=== PATIENT | female | born 1935 | race Caucasian/White ===

== ENCOUNTER → 2019-06-05 | Outpatient (CLI) | payer OTHER ==
--- NOTE | 2019-06-05 17:58 | RAD ---
EXAM DESCRIPTION: Chest x-ray,2 Views CLINICAL HISTORY: COUGH R05 COMPARISON: None TECHNIQUE: PA/lateral FINDINGS: Calcified nodes in the hilar region bilaterally with scattered calcified granulomas of the lungs. Heart size is normal with normal pulmonary vascularity. No pleural effusion or pneumothorax. Lungs are clear with no consolidating infiltrate. Lateral view shows intact sternum and degenerative spurring in the mid to lower T-spine. IMPRESSION: No acute process. Electronically signed by: Wild Chaparro MD 06/05/2019 5:57 PM [facility]
== END ==
LOC: LAB.O 16:37
PROVIDERS: ATTEND Nurse Practitioner
DX: R05 Cough (principal); R10.2 Pelvic and perineal pain; R34 Anuria and oliguria

== ENCOUNTER → 2019-06-19 | Outpatient (CLI) | payer OTHER ==
--- NOTE | 2019-06-19 13:34 | RAD ---
EXAM DESCRIPTION: Chest,2 Views CLINICAL HISTORY: 83 years Female, ACUTE EXACERBATION OF CHRONIC OBSTRUCTIVE AIRWAYS DISEASE COMPARISON: 06/05/2019 FINDINGS: 2 views/radiographs Heart size and pulmonary vessels are within normal limits. There is no pneumothorax or pleural effusion. The lungs are clear bilaterally. The soft tissues are unremarkable. No acute osseous findings. Prior granulomatous disease. Atherosclerotic plaque in the thoracic aorta. The lungs are hyperexpanded. IMPRESSION: No acute cardiopulmonary abnormality. Electronically signed by: Lei Cotter MD 06/19/2019 1:33 PM [facility]
== END ==
LOC: LAB.O 12:48
PROVIDERS: ATTEND Nurse Practitioner
DX: J44.1 Chronic obstructive pulmonary disease with (acute) exacerbation (principal); E87.1 Hypo-osmolality and hyponatremia

== ENCOUNTER → 2019-07-01 | Outpatient (CLI) | payer OTHER | LOC: LAB.O 09:44 | PROVIDERS: ATTEND Nurse Practitioner | DX: R05 Cough (principal) ==

== ENCOUNTER 2019-07-15 16:26 | Emergency (ER) | payer OTHER ==
[2019-07-15] MEDS ORDERED: MORPHINE SULFATE INJ 10 MG/ML VIAL IV ONE (16:50)
[2019-07-15] MEDS ORDERED: ONDANSETRON INJ 4 MG/2 ML VIAL IV ONE (16:50)
[2019-07-15] MEDS ORDERED: hydrALAZINE HCl 20 MG/ML VIAL IV ONE (16:51)
[2019-07-15] MEDS: SODIUM CHLORIDE 0.9% (FLUSH) 10 ML SYG IV PRN ×2 (17:22→19:51)
--- NOTE | 2019-07-15 17:53 | RAD ---
EXAM DESCRIPTION: Chest,2 Views CLINICAL HISTORY: malignant hypertension COMPARISON: Chest radiograph dated June 19, 2019 TECHNIQUE: Two-view radiograph of the chest FINDINGS: Calcific atherosclerosis and tortuosity of the thoracic aorta. Cardiac silhouette shows normal heart size. Pulmonary vascularity is within normal limits. Scattered calcified granuloma throughout both lungs. Calcification bilateral hilar regions most compatible with granulomatous disease. Subtle linear opacities in the bilateral lower lung zones most compatible with atelectasis. Bilateral apical scarring. Costophrenic angles are sharp. No pneumothorax. Degenerative changes of the thoracic spine and bilateral shoulders. IMPRESSION: 1. Subtle linear opacities bilateral lower lung zones most compatible with atelectasis. Underlying infiltrate cannot be excluded. 2. Chronic findings as above. Electronically signed by: Nicolas Salvador MD 07/15/2019 5:52 PM [facility]
[2019-07-15] MEDS ORDERED: PROCHLORPERAZINE INJ 10 MG/2 ML VIAL IV ONE (19:19)
--- NOTE | 2019-07-15 20:06 | CT ---
EXAM DESCRIPTION: Head CLINICAL HISTORY: dizziness with htn. COMPARISON: None Available TECHNIQUE: Contiguous axial CT images of the head were obtained. Coronal and sagittal reconstructions were created from the axial data. This exam was performed according to our departmental dose-optimization program, which includes automated exposure control, adjustment of the mA and/or kV according to patient size and/or use of iterative reconstruction technique. FINDINGS: There is no evidence of acute mass, mass effect, midline shift or hemorrhage. The ventricles and extra-axial CSF spaces are unremarkable. The brain parenchyma appears normal for the patient's age. No acute abnormalities of the bones is seen. IMPRESSION: No acute intracranial abnormality. Electronically signed by: Darrell Rolle 07/15/2019 8:04 PM [facility]
--- NOTE | 2019-07-15 20:59 | ED.PDOC ---
History of Present Illness - General Chief Complaint: General Stated Complaint: dizziness, high blood pressure Time Seen by Provider: 07/15/19 16:46 Source: patient, RN notes reviewed, Vital Signs reviewed, family - Son, RN/ - Dr. Mcgee Exam Limitations: no limitations - History of Present Illness Initial Comments: Patient is an 83-year-old white female who presented to her PCPs office this afternoon with elevated blood pressure, headache and dizziness. They attempted to bring her blood pressure down there in the clinic, but were unsuccessful and sent her to the emergency department for further evaluation and treatment. On arrival here patient is complaining of a headache, not the worst of her life, associated dizziness and blurry vision with some mild nausea. Patient denied any vertigo. She denies any chest pain or shortness of breath. She denies any nausea, vomiting or diarrhea. This came on acutely this morning. It lasted for approximately 10 hours. Nothing seems to make it better or worse. Timing/Duration: 4-6 hours Severity: severe Improving Factors: nothing Worsening Factors: nothing Associated Symptoms: headaches Allergies/Adverse Reactions: Allergies Amantadine Allergy (Verified 07/15/19 17:07) Cephalosporins Allergy (Verified 07/15/19 17:07) Penicillins Allergy (Verified 07/15/19 17:07) Home Medications: Ambulatory Orders Nitrofurantoin Monohydrate Mac [Macrobid] 100 mg PO BID #14 capsule 07/15/19 Prochlorperazine Tab [Compazine Tab] 10 mg PO Q6H #12 tab 07/15/19 Review of Systems - Review of Systems Constitutional: States: see HPI, weakness EENTM: States: no symptoms reported Respiratory: States: no symptoms reported. Denies: short of breath, wheezing Cardiology: States: no symptoms reported. Denies: chest pain, palpitations Gastrointestinal/Abdominal: Denies: abdominal pain, nausea, vomiting Genitourinary: States: no symptoms reported Musculoskeletal: States: no symptoms reported Skin: States: no symptoms reported Neurological: States: see HPI, headache. Denies: paresthesia, tingling, tremors Endocrine: States: no symptoms reported Hematologic/Lymphatic: States: no symptoms reported All other Systems: Reviewed and Negative Past Medical History (General) - Patient Medical History Hx Stroke: No Hx Dementia: No Hx of COPD: Yes Hx Congestive Heart Failure: No Hx Hypertension: Yes Hx Diabetes: No Hx Renal Disease: No Surgical History: appendectomy, other Family Medical History - Family History Mother Family History: No Known Physical Exam - Physical Exam General Appearance: Alert, Anxious, Well Developed, Well Groomed, Well Hydrated, Well Nourished Eye Exam: bilateral normal Ears, Nose, Throat: hearing grossly normal, normal ENT inspection, normal pharynx Neck: non-tender, full range of motion, supple, normal inspection Respiratory: chest non-tender, lungs clear, normal breath sounds, no respiratory distress, no accessory muscle use Cardiovascular/Chest: normal peripheral pulses, regular rate, rhythm, no edema, no gallop, no JVD, no murmur Peripheral Pulses: radial,right: 2+, radial,left: 2+ Gastrointestinal/Abdominal: normal bowel sounds, non tender, soft, no organomegaly, no pulsatile mass Back Exam: normal inspection, no CVA tenderness, no vertebral tenderness Extremity: normal range of motion, non-tender, normal inspection, no pedal edema 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 07/15/19 21:10 Patient presented with headache, dizziness and significantly elevated blood pressure. Blood pressure was brought down using IV medication. Additionally patient was given pain medication for headache. This only helped minimally but after I gave her IV Compazine the headache resolved. On review of her records, she has a UTI and I will treat this with a prescription for antibiotics. I have discussed the plan of care with the patient and her son and they voiced understanding and agreement. Plan discharge home at this time. Rolando Rodríguez M.D. #[id number] - Results/Orders Results/Orders: EXAM DESCRIPTION: Head CT CLINICAL HISTORY: dizziness with htn. COMPARISON: None Available TECHNIQUE: Contiguous axial CT images of the head were obtained. Coronal and sagittal reconstructions were created from the axial data. This exam was performed according to our departmental dose-optimization program, which includes au tomated exposure control, adjustment of the mA and/or kV according to patient size and/or use of iterative reconstruction technique. FINDINGS: There is no evidence of acute mass, mass effect, midline shift or hemorrhage. The ventricles and extra-axial CSF spaces are unremarkable. The brain parenchyma appears normal for the patient's age. No acute abnormalities of the bones is seen. IMPRESSION: No acute intracranial abnormality. Electronically signed by: Darrell Ariascarly 07/15/2019 8:04 PM [facility] EXAM DESCRIPTION: Chest,2 Views CLINICAL HISTORY: malignant hypertension COMPARISON: Chest radiograph dated June 19, 2019 TECHNIQUE: Two-view radiograph of the chest FINDINGS: Calcific atherosclerosis and tortuosity of the thoracic aorta. Cardiac silhouette shows normal heart size. Pulmonary vascularity is within normal limits. Scattered calcified granuloma throughout both lungs. Calcification bilateral hilar regions most compatible with granulomatous disease. Subtle linear opacities in the bilateral lower lung zones most compatible with atelectasis. Bilateral apical scarring. Costophrenic angles are sharp. No pneumothorax. Degenerative changes of the thoracic spine and bilateral shoulders. IMPRESSION: 1. Subtle linear opacities bilateral lower lung zones most compatible with atelectasis. Underlying infiltrate cannot be excluded. 2. Chronic findings as above. Electronically signed by: Nicolas Salvador MD 07/15/2019 5:52 PM [facility] 07/15/19 16:30 Urine Culture Stat 07/15/19 16:47 IV Care:Saline Lock per Protoc QSHIFT Telemetry ONCE Sodium Chloride 0.9% (Flush) [Saline Flush Syringe] 3 ml IV PRN PRN 07/15/19 17:00 EKG STAT 07/16/19 09:00 Pulse Ox Daily Laboratory Results - last 24 hr 07/15/19 07/15/19 07/15/19 16:30 17:18 17:18 WBC 8.2 RBC 4.30 Hgb 12.9 Hct 39.4 MCV 91.6 MCH 30.0 MCHC 32.8 L RDW 13.4 Plt Count 268 MPV 7.3 L Absolute Neuts (auto) 4.60 Absolute Lymphs (auto) 2.10 Absolute Monos (auto) 0.80 Absolute Eos (auto) 0.60 H Absolute Basos (auto) 0.10 Neutrophils % 56.5 Lymphocytes % 25.2 Monocytes % 10.2 H Eosinophils % 7.2 H Basophils % 0.9 Sodium 134 L Potassium 3.5 L Chloride 100 L Carbon Dioxide 23 Anion Gap 14.5 BUN 10 Creatinine 0.92 BUN/Creatinine Ratio 10.9 Random Glucose 98 Serum Osmolality 267.3 L Calcium 9.7 Magnesium 1.8 Total Bilirubin 0.7 AST 20 ALT 12 Alkaline Phosphatase 118 Creatine Kinase 69 CK-MB (CK-2) 2.0 CK-MB (CK-2) % Not Reportable Troponin I 0.02 B-Natriuretic Peptide 199.0 H Serum Total Protein 6.8 Albumin 3.9 Globulin 2.9 Albumin/Globulin Ratio 1.3 Lipase 29 Urine Color Yellow Urine Appearance Clear Urine pH 6.0 Ur Specific [place] 1.015 Urine Protein Negative Urine Glucose (UA) Negative Urine Ketones Negative Urine Blood Negative Urine Nitrite Negative Urine Bilirubin Negative Urine Urobilinogen 0.2 Ur Leukocyte Esterase Trace H Urine RBC 0-1 Urine WBC 10-20 H Ur Epithelial Cells 1-3 Urine Bacteria 1+ Departure - Departure Clinical Impression: Accelerated hypertension Urinary tract infection Qualifiers: Urinary tract infection type: acute cystitis Hematuria presence: without hematuria Qualified Code(s): N30.00 - Acute cystitis without hematuria Migraine headache Qualifiers: Migraine type: without aura Status migrainosus presence: without status migrainosus Intractability: not intractable Qualified Code(s): G43.009 - Migraine without aura, not intractable, without status migrainosus Disposition: Discharge to Home or Self Care Condition: Good Departure Forms: ED Discharge - Pt. Copy, Patient Portal Self Enrollment Instructions: Migraine Headache (DC), Urinary Tract Infection, Adult (DC), Malignant Hypertension (DC) Referrals: Hilary Mcgee MD [Primary Care Provider] - 1-5 Days Prescriptions: Nitrofurantoin Monohydrate Mac [Macrobid] 100 mg PO BID #14 capsule Prochlorperazine Tab [Compazine Tab] 10 mg PO Q6H #12 tab Home Medications: Ambulatory Orders Nitrofurantoin Monohydrate Mac [Macrobid] 100 mg PO BID #14 capsule 07/15/19 Prochlorperazine Tab [Compazine Tab] 10 mg PO Q6H #12 tab 07/15/19
[2019-07-15 23:26] VITALS: BP 100/52; TEMP 98.1; O2SAT 97
== END 2019-07-15 21:48 | disposition home or self-care (01) ==
LOC: ER 16:26
DX: I10 Essential (primary) hypertension (principal); N30.00 Acute cystitis without hematuria; G43.009 Migraine without aura, not intractable, without status migrainosus; J44.9 Chronic obstructive pulmonary disease, unspecified; Z88.8 Allergy status to other drugs, medicaments and biological substances; Z88.0 Allergy status to penicillin; Z79.899 Other long term (current) drug therapy
CPT/HCPCS: 36415; 70450; 71046; 80053; 81001; 82550; 82553; 83690; 83735; 83880; 84484; 85025; 87086; 93005; J0360; J0780; J2270; J2405

== ENCOUNTER → 2019-07-16 | Outpatient (CLI) | payer OTHER ==
--- NOTE | 2019-07-17 13:48 | US ---
EXAM DESCRIPTION: Renal: Ultrasound. CLINICAL HISTORY: 83 years Female Renal check up COMPARISON: None TECHNIQUE: Transcutaneous scanning: Two-dimensional and Doppler modes. FINDINGS: Right kidney measures 8.4 x 4.0 x 4.0 cm; mid-renal cortical thickness 9 mm. . Increased cortical echogenicity but less than the liver No hydronephrosis No echogenic stones. Smooth contour of the kidney with no perinephric fluid. Normal vascularity. Proximal ureter not visualized.. Left kidney measures 8.9 x 4.7 x 4.6 cm; mid-renal cortical thickness 9 mm.. Increased echogenicity but less than the liver No hydronephrosis. No echogenic stones. Smooth contour of the kidney with no perinephric fluid. Normal vascularity.. Proximal ureter not visualized.. Urinary bladder not visualized. Abdominal aorta: not measured. IMPRESSION: Bilateral kidneys with age-related changes including increased cortical echogenicity and decreased cortical thickness. No echogenic stones or hydronephrosis. No perinephric fluid. Normal vascularity. Electronically signed by: Darrell Loomis MD 07/17/2019 1:46 PM [facility]
== END ==
LOC: US 12:11
PROVIDERS: ATTEND Internal Medicine Nephrology
DX: N18.4 Chronic kidney disease, stage 4 (severe) (principal)

== ENCOUNTER 2019-07-23 17:36 | Inpatient (IN) | payer OTHER ==
[2019-07-23] MEDS ORDERED: SODIUM CHLORIDE 0.9% (FLUSH) 10 ML SYG IV PRN ×2 (17:48→22:22)
--- NOTE | 2019-07-23 17:53 | ED.PDOC ---
History of Present Illness - General Chief Complaint: Respiratory Problem Stated Complaint: wheezing Time Seen by Provider: 07/23/19 17:42 - History of Present Illness Initial Comments: 83-year-old female presents to the emergency room with family for progressive cough, shortness of breath over two months, now w weakness over 2-3 days. + chills. States she has had 5 chest x-rays, seen multiple physicians, but not been placed on antibiotics. She is also concerned because her blood pressure rises every evening, but seems to not be clear on her medication regimen. Medication pillbox at the bedside has certain days that are full, but others are completely empty. She denies fever, productive cough, no recent hospitalizations. States she uses inhalers, but not sure what kind. Allergies/Adverse Reactions: Allergies Amantadine Allergy (Verified 07/15/19 17:07) Cephalosporins Allergy (Verified 07/15/19 17:07) Penicillins Allergy (Verified 07/15/19 17:07) Home Medications: Ambulatory Orders Nitrofurantoin Monohydrate Mac [Macrobid] 100 mg PO BID #14 capsule 07/15/19 Prochlorperazine Tab [Compazine Tab] 10 mg PO Q6H #12 tab 07/15/19 Review of Systems - Review of Systems Review of Systems: 07/23/19 17:51 General: has generalized weakness, chills, no arthralgia/myalgia HEENT: Denies sore throat, rhinorrhea Cardiovascular: has chest pain w cough, no palpitations Respiratory: has SOB, cough Gastrointestinal: Denies abdominal pain, vomiting, diarrhea : Denies dysuria, frequency Musculoskeletal: Denies extremity pain, extremity swelling Integument: Denies rash, itching Neuro: Denies focal weakness or numbness Psych: Denies depression, hallucinations Past Medical History (General) - Patient Medical History Hx Stroke: No Hx Dementia: No Hx of COPD: Yes Hx Congestive Heart Failure: No Hx Hypertension: Yes Hx Diabetes: No Hx Renal Disease: No Family Medical History - Family History Mother Family History: No Known Physical Exam - Physical Exam Comments: General Appearance: Patient is awake and alert. elderly, frail, grumpy. Skin: Warm and dry. No diaphoresis. No rash or other lesions. Head: Normocephalic/atraumatic. Eyes: PERRL, lids, conjunctiva and sclera unremarkable. EOMI intact. ENT: No nasal discharge. Oropharynx. Without erythema, exudate, lesions. Moist mucous membranes. Neck: Supple. No LAD. No tenderness. No JVD noted. Respiratory: Normal rate and effort. Coarse BS, is coughing. Cardiovascular: Regular rate. Heart sounds normal. No murmur. GI: Abdomen soft, non-distended and non-tender. No rebound/guarding. Bowel sounds normal. Back: No tenderness Musculoskeletal: Extremities- Normal range of motion. No effusion, cyanosis, edema. Neurological: Alert. No facial palsy. Speech clear. Gag intact. No motor deficit, str symmetric. No sensory deficit. Progress - Progress Progress: 07/23/19 19:49 worsening productive cough, has leukocytosis, left shift, Na 130, CXR w/ worse infiltrates, concerning for pna, moderate risk. cultures sent, added lactic acid, abx, nebs, single dose steroid. RT at bedside, will plan admit. - Results/Orders Results/Orders: Vital Signs - 24 hr 07/23/19 07/23/19 07/23/19 17:45 18:37 18:40 Temperature 100.0 F H Pulse Rate [ 75 75 77 left brachial] Respiratory 24 24 22 Rate Blood Pressure 176/64 137/71 [left brachial] O2 Sat by Pulse 91 L 90 L Oximetry 07/23/19 19:00 Temperature Pulse Rate [ 77 left brachial] Respiratory 24 Rate Blood Pressure 163/67 [left brachial] O2 Sat by Pulse 94 L Oximetry 07/23/19 17:48 Sodium Chloride 0.9% (Flush) [Saline Flush Syringe] 10 ml IV PRN PRN 07/23/19 18:00 EKG STAT 07/24/19 09:00 Pulse Ox Daily Laboratory Results WBC 13.9 K/mm3 (4.8-10.8) H 07/23/19 18:10 RBC 3.86 M/mm3 (4.20-5.40) L 07/23/19 18:10 Hgb 11.6 gm/dL (12.0-16.0) L 07/23/19 18:10 Hct 35.0 % (36.0-47.0) L 07/23/19 18:10 MCV 90.7 fl (81.0-99.0) 07/23/19 18:10 MCH 30.0 pg (27.0-31.0) 07/23/19 18:10 MCHC 33.1 g/dL (33.0-37.0) 07/23/19 18:10 RDW 13.2 % (11.5-14.5) 07/23/19 18:10 Plt Count 256 K/mm3 (130-400) 07/23/19 18:10 MPV 7.8 fl (7.40-10.4) 07/23/19 18:10 Absolute Neuts (auto) 11.50 K/uL (1.8-6.8) H 07/23/19 18:10 Absolute Lymphs (auto) 0.80 K/uL (1.0-3.4) L 07/23/19 18:10 Absolute Monos (auto) 0.90 K/uL (0.2-0.8) H 07/23/19 18:10 Absolute Eos (auto) 0.70 K/uL (0.0-0.4) H 07/23/19 18:10 Absolute Basos (auto) 0.00 K/uL (0.0-0.1) 07/23/19 18:10 Neutrophils % 82.1 % (42.0-78.0) H 07/23/19 18:10 Lymphocytes % 5.8 % (20.0-50.0) L 07/23/19 18:10 Monocytes % 6.6 % (2.0-9.0) 07/23/19 18:10 Eosinophils % 5.3 % (1.0-5.0) H 07/23/19 18:10 Basophils % 0.2 % (0.0-2.0) 07/23/19 18:10 Sodium 130 mmol/L (135-145) L 07/23/19 18:10 Potassium 4.1 mmol/L (3.6-5.0) 07/23/19 18:10 Chloride 96 mmol/L (101-111) L 07/23/19 18:10 Carbon Dioxide 23 mmol/L (21-31) 07/23/19 18:10 Anion Gap 15.1 (12-18) 07/23/19 18:10 BUN 15 mg/dL (7-18) 07/23/19 18:10 Creatinine 1.11 mg/dL (0.6-1.3) 07/23/19 18:10 BUN/Creatinine Ratio 13.5 (10-20) 07/23/19 18:10 Random Glucose 106 mg/dL (70-105) H 07/23/19 18:10 Serum Osmolality 262.0 mOsm/L (275-295) L 07/23/19 18:10 Calcium 9.3 mg/dL (8.4-10.2) 07/23/19 18:10 Total Bilirubin 0.7 mg/dL (0.2-1.0) 07/23/19 18:10 AST 34 IU/L (10-42) 07/23/19 18:10 ALT 25 IU/L (10-60) 07/23/19 18:10 Alkaline Phosphatase 124 IU/L (42-121) H 07/23/19 18:10 Troponin I 0.02 ng/mL (0.01-0.05) 07/23/19 18:10 Serum Total Protein 6.6 gm/dL (6.4-8.2) 07/23/19 18:10 Albumin 3.6 g/dl (3.2-5.5) 07/23/19 18:10 Globulin 3.0 gm/dL (2.3-3.5) 07/23/19 18:10 Albumin/Globulin Ratio 1.2 (1.1-1.9) 07/23/19 18:10 - EKG/XRAY/CT XRAY: chest Xray Comments: bilateral infiltrates, concerning for pna, worsened since 07/15 - Consult/PCP Time Called: 19:47 Consult/PCP: d/w Guerita Bass, agrees to admit Departure - Departure Clinical Impression: Pneumonia Disposition: Admit Patient Condition: Fair Referrals: Hilary Mcgee MD [Primary Care Provider] - 1-2 Weeks Home Medications: Ambulatory Orders Nitrofurantoin Monohydrate Mac [Macrobid] 100 mg PO BID #14 capsule 07/15/19 Prochlorperazine Tab [Compazine Tab] 10 mg PO Q6H #12 tab 07/15/19 Comments: Jesus Berman MD Emergency Medicine #[id number] Decision To Admit - Decistion To Admit Decision to Admit Reason: Admit from ER Decision to Admit Date: 07/23/19 Decision to Admit Time: 19:38
--- NOTE | 2019-07-23 18:20 | RAD ---
EXAM:Chest,2 Views CLINICAL INDICATION: Cough COMPARISON: 07/15/2019 FINDINGS:Two views of the chest were obtained. The heart size is normal. The pulmonary vascularity is unremarkable. Mild infiltrates are seen in the right apex as well as in the left lower lobe suspicious for pneumonia. A few scattered calcified granulomas are noted as well as chronic mild biapical scarring. Trace bilateral pleural effusions are noted. The lungs are otherwise clear. IMPRESSION: Bilateral pulmonary infiltrates suspicious for pneumonia which appear worse than 07/15/2019. Electronically signed by: Khurram Roa MD 07/23/2019 6:18 PM [facility]
[2019-07-23] MEDS ORDERED: SODIUM CHLORIDE 0.9% 500ML 500 ML IVS ONE (18:35)
[2019-07-23] MEDS ORDERED: DEXAMETHASONE INJ 4 MG/ML VIAL IV ONE (18:36)
[2019-07-23] MEDS ORDERED: levoFLOXacin 500MG IV 500 MG in PREMIX BAG 1 BAG IVPB ONE (19:26)
[2019-07-23] MEDS ORDERED: levoFLOXacin 500MG IV 100 ML IVPB ONE (19:34)
[2019-07-23] MEDS ORDERED: IPRATROPIUM/ALBUTEROL 3 ML VIAL NEB ONE ×2 (19:36→19:37)
--- NOTE | 2019-07-23 20:41 | HP ---
SUPERVISING PHYSICIAN: Ted Merida MD CHIEF COMPLAINT: Wheezing and upper respiratory symptoms times 2 months. HISTORY OF PRESENT ILLNESS: This is an 83 year-old female patient who came to the Emergency Room with her family. She has had a progressive cough and shortness of breath that has been ongoing for over 2 months. In the last couple of days, she has had weakness that has accompanied chills and fever. She has been seen by several providers but has had no antibiotics that she remembers. She does have a history of hypertension and it is reported from the Emergency Room that she had a mixup on her medications. In the Emergency Room, her initial vital signs were temperature of 100, heart rate 75, blood pressure 176/64, respiratory rate 24, 02 saturation of 91%. She moved here from [place] in March and in [place] she was oxygen dependent. She does not have oxygen at this time. Her lab was done and WBC was 13,900 with a hemoglobin of 11.6 and hematocrit of 35. She did have a left shift on her differential. Sodium was 130, potassium 4.1, chloride 96, glucose 106, serum osmolality 262, lactic acid of 1. Alkaline phosphatase was slightly elevated at 124, troponin 0.02, C- reactive protein was 9.9. Urinalysis was basically unremarkable except she did have a small amount of leukocyte esterase present. Chest x-ray showed bilateral pulmonary infiltrate suspicious for pneumonia that is worse than previous x-ray. She was given some Levaquin as well as Decadron, multiple breathing treatments and I was called for admission to the hospital. PAST MEDICAL HISTORY: 1. Chronic obstructive pulmonary disease. 2. Chronic low back pain. 3. Hypertension. 4. Urinary retention. PAST SURGICAL HISTORY: 1. Hemorrhoidectomy. 2. Appendectomy. 3. Repair of rectal fistula. 4. Thumb surgery. 5. Eye surgery. CURRENT MEDICATIONS: Per the EMR and awaiting verification. ALLERGIES: Amantadine, cephalosporin and penicillins. FAMILY HISTORY: SOCIAL HISTORY: She lives in [place]. She recently moved from [place] on April 08. She denies smoking, ETOH or illicit drug use. REVIEW OF SYSTEMS: GENERAL: Positive for fatigue, fever, negative for weight changes. HEENT: Negative for sinus symptoms, ear pain, vision changes, sore throat. RESPIRATORY: Positive for coughing, wheezing, shortness of breath. CARDIAC: No chest pain, palpitations or tachycardia. GI: Negative for nausea or vomiting, diarrhea. GENITOURINARY: Negative for dysuria, polyuria, hematuria. MUSCULOSKELETAL: Positive for back pain that is chronic. Negative for arthrosis, myalgias. INTEGUMENT: Negative for lesions or rashes. NEUROLOGICAL: Negative for weakness, headaches or seizures. PHYSICAL EXAMINATION: VITAL SIGNS: Temperature 98.3, heart rate 78, blood pressure 161/69, respiratory rate 20, oxygen saturation 96% on 2 liters nasal cannula. GENERAL: This is an 83 year-old female patient lying in her hospital bed. She is in mild respiratory distress. HEENT: Normocephalic and atraumatic. Pupils are equal and reactive. Oropharynx is clear. NECK: Supple without mass. CHEST: Diminished breath sounds throughout. She has some expiratory wheezes throughout all lung dwyer, especially in the apices. She is tachypneic with any exertion. She speaks in 2 to 3-word phrases due to her shortness of breath. There is equal rise and fall of the chest with inspiration and expiration. CARDIOVASCULAR: Regular rate, irregular rhythm. ABDOMEN: Soft, nondistended, non-tender. Bowel sounds are positive. EXTREMITIES: No cyanosis, clubbing, or edema. NEUROLOGIC: She is alert and oriented x 3. Cranial nerves II through XII are grossly intact as tested. LABORATORY: Labs and films are as per the history of present illness. ASSESSMENT: 1. Sepsis related to bilateral pneumonia, most likely community-acquired with admitting respiratory rate of 24, oxygen saturation 90%. WBC of 14,000, CRP of 9.9. 2. Chronic obstructive pulmonary disease with acute exacerbation. 3. Anemia, normochromic, normocytic presentation. 4. Hyponatremia. 5. History of hypertension, on medications. 6. Chronic back pain. PLAN: The patient has been admitted to the hospital. I have initiated the pneumonia guidelines. I will continue her fluids overnight. She will continue on Levaquin and I will order several more doses of Decadron as she has had some allergic reactions to steroids in the past but tolerated that without problems in the Emergency Room. Will check lab in the morning. Will monitor her sodium closely, if we need to we will put her on fluid-restriction. Will have aggressive pulmonary hygiene including nebulizer treatments, both p.r.n. and scheduled. Will need to do extensive chronic obstructive pulmonary disease education, giving her Lovenox for DVT prophylaxis and Protonix for ulcer prophylaxis. Restart her home medications as soon as they are verified. Will continue to monitor closely and follow as needed. #[id number] MIKAEL
[2019-07-23] MEDS: IV SET AND CAP CHANGE INJ INJ SCH (22:30)
[2019-07-23] MEDS ORDERED: levoFLOXacin 500MG IV 500 MG in PREMIX BAG 1 BAG IVPB SCH (22:30)
[2019-07-23] MEDS ORDERED: LABETALOL HCL 100 MG PO SCH (22:45)
[2019-07-23] MEDS: traMADol HCL 50 MG TAB PO PRN (22:57)
[2019-07-24] MEDS ORDERED: IPRATROPIUM/ALBUTEROL 3 ML VIAL NEB ONE (01:00)
--- NOTE | 2019-07-24 05:43 | RAD ---
EXAM: XR Chest, 2 Views CLINICAL HISTORY: The patient is 83 years old and is Female; Pneumonia TECHNIQUE: Frontal and lateral views of the chest. COMPARISON: Chest radiograph from 07/23/2019 FINDINGS: LUNGS: Minimal increased density again noted at the level of the right upper lung and within the bases. This may represent areas of atelectasis. Pneumonia not completely excluded at the right upper lung. PLEURAL SPACE: Small right pleural effusion. No pneumothorax. HEART: Stable mild enlargement of the cardiac silhouette. MEDIASTINUM: Unremarkable. BONES/JOINTS: Degenerative changes of the bilateral shoulders. No obvious acute fracture. IMPRESSION: 1. Mild opacities again noted at the level of the right upper lung and within the bases. This may represent areas of atelectasis. Pneumonia not completely excluded. 2. Small right pleural effusion. Electronically signed by: Lita Alcantara MD 07/24/2019 5:41 AM [facility]
[2019-07-24] MEDS ORDERED: levoFLOXacin 500MG IV 100 ML IVPB ONE (07:17)
[2019-07-24] MEDS ORDERED: SODIUM CHLORIDE 0.9% 1000ML 1,000 ML IVS ONE (07:17)
[2019-07-24] MEDS: levoFLOXacin 500MG IV 500 MG in PREMIX BAG 1 BAG IVPB SCH (09:30)
[2019-07-24] MEDS: IPRATROPIUM/ALBUTEROL 3 ML VIAL INH SCH ×4 (09:30→19:10)
[2019-07-24] MEDS: INDAPAMIDE 2.5 MG PO SCH (09:55)
[2019-07-24] MEDS: LISINOPRIL 10 MG TAB PO SCH (09:56)
[2019-07-24] MEDS: cloNIDine HCL 0.1 MG TAB PO SCH (09:56)
[2019-07-24] MEDS: LABETALOL 200 MG TAB PO SCH ×2 (09:57→20:50)
[2019-07-24] MEDS: SODIUM CHLORIDE 0.9% (FLUSH) 10 ML SYG IV SCH ×2 (09:58→20:51)
[2019-07-24] MEDS: (Mirabegron [Myrbetriq] 25 MG) PO SCH (10:17)
[2019-07-24] MEDS: traMADol HCL 50 MG TAB PO PRN (12:58)
[2019-07-24] MEDS: DEXAMETHASONE INJ 4 MG/ML VIAL IV SCH (17:30)
[2019-07-24] MEDS: ENOXAPARIN SODIUM 40 MG/0.4 ML SYG SUBCU SCH (20:50)
[2019-07-24] MEDS: guaiFENesin ER TAB 600 MG TAB PO SCH (20:50)
[2019-07-24] MEDS: SIMVASTATIN 20 MG TAB PO SCH (20:50)
[2019-07-24] MEDS ORDERED: BISACODYL TAB 5 MG TAB PO ONE (21:43)
[2019-07-24] MEDS: BISACODYL TAB 5 MG TAB PO SCH (21:47)
[2019-07-24] MEDS ORDERED: SENNOSIDES 50 MG PO SCH (22:31)
[2019-07-25] MEDS: ARFORMOTEROL TARTRATE 15 MCG/2 ML NEB NEB SCH ×3 (02:07→20:11)
[2019-07-25] MEDS ORDERED: IPRATROPIUM/ALBUTEROL 3 ML VIAL NEB ONE (03:40)
[2019-07-25] MEDS: diazePAM 5 MG TAB PO PRN ×3 (03:46→20:52)
[2019-07-25] MEDS: PROMETHAZINE W/CODEINE SYR 5 ML UD PO PRN ×2 (05:34→09:02)
--- NOTE | 2019-07-25 07:09 | RAD ---
EXAM DESCRIPTION: Chest,2 Views CLINICAL HISTORY: pna COMPARISON: July 24, 2019, June 05, 2019 FINDINGS: The cardiomediastinal silhouette is unremarkable. Coarse interstitial prominence in both lung bases with additional interstitial opacity in the right lung apex, all not significant change from July 24, 2019. Question tiny right-sided pleural effusion, also stable. No new airspace consolidation. There is no pneumothorax or acute fracture. IMPRESSION: No new abnormality or significant change from yesterday's exam. Electronically signed by: Artemio Butler MD 07/25/2019 7:08 AM [facility]
[2019-07-25] MEDS: IPRATROPIUM/ALBUTEROL 3 ML VIAL INH SCH ×4 (08:10→22:26)
--- NOTE | 2019-07-25 08:19 | PN ---
SUPERVISING PHYSICIAN: Ted Merida MD DATE: 07/24/19 SUBJECTIVE: The patient is sitting up in her bed. Her son is at the bedside. She said she feels much better today although she is still having some shortness of breath and wheezing. We discussed that she had oxygen when she lived in [place] and she does not have oxygen at home now. I told her we can do an ambulation study. Otherwise, no complaints of chest pain, nausea, vomiting, diarrhea or constipation. OBJECTIVE: VITAL SIGNS: Temperature 97.8. Heart rate 75. Blood pressure 133/74. Respiratory rate 22. O2 saturation 96% on 2 liters nasal cannula. RESPIRATORY: Diminished at the bases, just a few expiratory wheezes, a few scattered crackles throughout. CARDIAC: Regular rate and rhythm. GASTROINTESTINAL: Abdomen is soft, nondistended, nontender. Bowel sounds are positive. EXTREMITIES: No cyanosis, clubbing or edema. NEUROLOGIC: Awake, alert and oriented times three. LABORATORY: White count 8, hemoglobin 10.9, hematocrit 32.3. She does have a left shift on her differential. Sodium 130, potassium 4.3, chloride 98, carbon dioxide 21, glucose 130, serum osmolality 262.7. Liver enzymes within normal limits. Blood cultures show no growth after 24 hours. Sputum and urine cultures are both pending. Her chest x-ray shows 1) Mild opacity again noted in the level of the right upper lung and within the bases. This may represent areas of atelectasis. Pneumonia cannot be excluded. 2) Small right pleural effusion. All other labs and films have been reviewed via the EMR. ASSESSMENT: 1. Sepsis related to bilateral pneumonia, most likely community-acquired with admitting respiratory rate of 24, oxygen saturation 90%. WBC of 14,000, CRP of 9.9. 2. Chronic obstructive pulmonary disease with acute exacerbation. 3. Anemia, normochromic/normocytic presentation. 4. Hyponatremia. 5. History of hypertension, on medications. 6. Chronic back pain. PLAN: We will continue present supportive care. I have continued her Decadron for 2 more days and increased her tramadol as she is not having relief from some of her back pain. I have added guaifenesin twice daily. We will have physical therapy work with her tomorrow. I have also ordered an ambulation study to see if she can qualify for oxygen as well as Social Service consult. I have included lab and chest x-ray for tomorrow. We will continue to monitor the patient closely and follow as needed. #[id number] MTDD
[2019-07-25] MEDS ORDERED: levoFLOXacin 500MG IV 100 ML IVPB ONE (08:41)
[2019-07-25] MEDS: levoFLOXacin 500MG IV 500 MG in PREMIX BAG 1 BAG IVPB SCH (08:58)
[2019-07-25] MEDS: (Mirabegron [Myrbetriq] 25 MG) PO SCH (08:59)
[2019-07-25] MEDS: INDAPAMIDE 2.5 MG PO SCH (08:59)
[2019-07-25] MEDS: guaiFENesin ER TAB 600 MG TAB PO SCH ×2 (09:00→20:53)
[2019-07-25] MEDS: LABETALOL 200 MG TAB PO SCH ×2 (09:00→20:53)
[2019-07-25] MEDS: LISINOPRIL 10 MG TAB PO SCH (09:01)
[2019-07-25] MEDS: cloNIDine HCL 0.1 MG TAB PO SCH (09:01)
[2019-07-25] MEDS: DEXAMETHASONE INJ 4 MG/ML VIAL IV SCH (09:01)
[2019-07-25] MEDS ORDERED: MAGNESIUM SULFATE PREMIX 2GM 2 GM in PREMIX BAG 1 BAG IVPB ONE (09:48)
[2019-07-25] MEDS ORDERED: MAGNESIUM SULFATE PREMIX 2GM 50 ML IVPB ONE (11:06)
[2019-07-25] MEDS: SODIUM CHLORIDE 0.9% (FLUSH) 10 ML SYG IV SCH ×2 (11:26→21:00)
[2019-07-25] MEDS: traMADol HCL 50 MG TAB PO PRN ×2 (12:58→18:20)
[2019-07-25] MEDS: tiZANidine 4 MG TAB PO PRN (12:59)
[2019-07-25] MEDS: BISACODYL TAB 5 MG TAB PO SCH (20:53)
[2019-07-25] MEDS: SIMVASTATIN 20 MG TAB PO SCH (20:53)
[2019-07-25] MEDS: ENOXAPARIN SODIUM 40 MG/0.4 ML SYG SUBCU SCH (20:54)
--- NOTE | 2019-07-25 21:41 | PN ---
SUPERVISING PHYSICIAN: Ted Merida MD DATE: 07/25/19 SUBJECTIVE: The patient is sitting up in her hospital bed. Her son is at the bedside. We discussed her medications and discharge planning. She wants to have [facility] on discharge. She also would like to have a sleep study because she had oxygen in [place] and she feels like she needs oxygen at night. Her biggest concern at this time is she has not had a bowel movement and she has quite a problem with constipation. She would like something for that. Otherwise, she has no complaints of shortness of breath or chest pain. OBJECTIVE: VITAL SIGNS: Temperature 98.2. Heart rate 69. Blood pressure 135/74. Respiratory rate 18. O2 saturation 96% on 2 liters nasal cannula. RESPIRATORY: Diminished at the bases, but no wheezing or crackles noted. CARDIAC: Regular rate and rhythm. GASTROINTESTINAL: Abdomen is soft, nondistended, nontender. Bowel sounds are positive. EXTREMITIES: No cyanosis, clubbing or edema. NEUROLOGIC: Awake, alert and oriented times three. LABORATORY: WBCs have normalized to 9.2 with hemoglobin 10.7, hematocrit 31.8. She has a left shift on her differential. Sodium is still low, but has improved to 132. Other electrolytes are within normal limits with the exception of magnesium is slightly low at 1.7. Preliminary blood cultures show no growth after 48 hours. Urine culture is pending. Chest x-ray shows no new abnormalities or significant change from yesterday's exam. Her echocardiogram report shows 1) Normal left ventricular size and systolic dysfunction with an estimated ejection fraction of 60 to 65% and no obvious regional wall motion abnormalities. 2) Normal right ventricular size and function. 3) Trace of mitral and tricuspid valve regurgitation. 4) Normal pericardium. All other labs and films have been reviewed via the EMR. ASSESSMENT: 1. Sepsis related to bilateral pneumonia, most likely community-acquired with admitting respiratory rate of 24, oxygen saturation 90%. WBC of 14,000, CRP of 9.9. 2. Chronic obstructive pulmonary disease with acute exacerbation. 3. Anemia, normochromic/normocytic presentation. 4. Hyponatremia. 5. History of hypertension, on medications. 6. Chronic back pain. 7. Chronic constipation. PLAN: We will continue present supportive care. She received some magnesium IV replacement. I will order labs for in the morning and hold chest x-ray for now. She has had ambulation study today and if she does not require oxygen on her ambulation study, we will need to order a sleep study and have it scheduled after discharge. I will give her magnesium citrate for her constipation. We will continue to monitor the patient closely and follow as needed. #[id number] [facility]
[2019-07-26] MEDS ORDERED: MAGNESIUM CITRATE 300 ML BTTL PO ONE (06:00)
[2019-07-26] MEDS ORDERED: levoFLOXacin 500MG IV 100 ML IVPB ONE (08:59)
[2019-07-26] MEDS: IPRATROPIUM/ALBUTEROL 3 ML VIAL INH SCH ×4 (09:04→20:30)
[2019-07-26] MEDS: ARFORMOTEROL TARTRATE 15 MCG/2 ML NEB NEB SCH ×2 (09:04→20:30)
[2019-07-26] MEDS: levoFLOXacin 500MG IV 500 MG in PREMIX BAG 1 BAG IVPB SCH (09:15)
[2019-07-26] MEDS: (Mirabegron [Myrbetriq] 25 MG) PO SCH (09:15)
[2019-07-26] MEDS: INDAPAMIDE 2.5 MG PO SCH (09:16)
[2019-07-26] MEDS: tiZANidine 4 MG TAB PO PRN (09:16)
[2019-07-26] MEDS: guaiFENesin ER TAB 600 MG TAB PO SCH ×2 (09:17→21:04)
[2019-07-26] MEDS: LABETALOL 200 MG TAB PO SCH ×2 (09:17→21:05)
[2019-07-26] MEDS: traMADol HCL 50 MG TAB PO PRN ×3 (09:18→21:34)
[2019-07-26] MEDS: cloNIDine HCL 0.1 MG TAB PO SCH (09:18)
[2019-07-26] MEDS: DEXAMETHASONE INJ 4 MG/ML VIAL IV SCH (09:20)
[2019-07-26] MEDS: SODIUM CHLORIDE 0.9% (FLUSH) 10 ML SYG IV SCH ×2 (09:20→21:06)
[2019-07-26] MEDS: LISINOPRIL 10 MG TAB PO SCH (09:27)
[2019-07-26] MEDS ORDERED: BIFIDOBACTERIUM INFANTIS 4 MG CAP PO SCH (13:30)
--- NOTE | 2019-07-26 17:19 | PN ---
SUPERVISING PHYSICIAN: Ted Merida MD DATE: 07/26/19 SUBJECTIVE: The patient is still having a significant amount of coughing and some shortness of breath associated with the cough. She has remained afebrile and has not had any further complaints of nausea or vomiting or chest pain. OBJECTIVE: VITAL SIGNS: Temperature 98.2. Heart rate 67. Blood pressure 166/72. Respiratory rate 20. O2 saturation 94% on room air at rest. I&O: Positive balance with a weight of 68.9 kg which is stable.. GENERAL: Patient is resting comfortably, appears to be in no acute distress. She is alert. RESPIRATORY: Lung sounds diminished toward the bases, with no notable wheezing or rhonchi today. . CARDIAC: Regular rate and rhythm. GASTROINTESTINAL: Abdomen is soft, nondistended, non-tender. Bowel sounds are positive. EXTREMITIES: No edema. NEUROLOGIC: Alert and oriented times three. LABORATORY: White count slightly elevated from yesterday at 11,000. Hemoglobin 11.2, hematocrit 35.3, platelet count 286,000, differential continues to show a left shift. Chemistries now show normal electrolytes with BUN of 60, creatinine 0.4. Liver functions within normal limits. Magnesium 1.9. MICROBIOLOGY: Sputum culture was cancelled. Urine culture final result showed no growth at 36 hours and blood cultures remained negative at 48 hours. RADIOLOGY: No additional studies today. ASSESSMENT: 1. Sepsis secondary to bilateral pneumonia, community-acquired.. 2. Chronic obstructive pulmonary disease with exacerbation secondary to #1. 3. Anemia, normochromic/normocytic, probably of chronic illness. . 4. Hyponatremia, now resolved. 5. History of hypertension, on medications and stable. 6. Chronic back pain. 7. Chronic constipation. PLAN: The patient seems to be doing a little better today. We will continue with aggressive treatment in regard to pulmonary hygiene and anticipate discharge tomorrow. Will await ambulation studies to insure that she is not going to require oxygen on discharge. She will need a sleep study scheduled after documentation. We will work on the constipation as needed. Until we can transition her to outpatient management which hopefully will be tomorrow, we will continue to monitor and treat as needed #[id number] MTDD
[2019-07-26] MEDS: BISACODYL TAB 5 MG TAB PO SCH (21:00)
[2019-07-26] MEDS: SENNOSIDES 25 MG PO SCH (21:00)
[2019-07-26] MEDS ORDERED: BISACODYL TAB 5 MG TAB PO SCH (21:00)
[2019-07-26] MEDS: BIFIDOBACTERIUM INFANTIS 4 MG CAP PO SCH (21:04)
[2019-07-26] MEDS: SIMVASTATIN 20 MG TAB PO SCH (21:05)
[2019-07-26] MEDS: ENOXAPARIN SODIUM 40 MG/0.4 ML SYG SUBCU SCH (21:06)
[2019-07-26] MEDS: IV SET AND CAP CHANGE INJ INJ SCH (23:11)
[2019-07-27] MEDS ORDERED: levoFLOXacin 500MG IV 100 ML IVPB ONE (07:54)
[2019-07-27] MEDS: levoFLOXacin 500MG IV 500 MG in PREMIX BAG 1 BAG IVPB SCH (08:20)
[2019-07-27] MEDS: LABETALOL 200 MG TAB PO SCH ×2 (08:21→21:04)
[2019-07-27] MEDS: (Mirabegron [Myrbetriq] 25 MG) PO SCH (08:21)
[2019-07-27] MEDS: cloNIDine HCL 0.1 MG TAB PO SCH (08:21)
[2019-07-27] MEDS: guaiFENesin ER TAB 600 MG TAB PO SCH ×2 (08:21→21:09)
[2019-07-27] MEDS: LISINOPRIL 10 MG TAB PO SCH (08:21)
[2019-07-27] MEDS: SODIUM CHLORIDE 0.9% (FLUSH) 10 ML SYG IV SCH ×2 (08:22→21:04)
[2019-07-27] MEDS: INDAPAMIDE 2.5 MG PO SCH (08:22)
[2019-07-27] MEDS: ARFORMOTEROL TARTRATE 15 MCG/2 ML NEB NEB SCH ×2 (09:18→20:30)
[2019-07-27] MEDS: IPRATROPIUM/ALBUTEROL 3 ML VIAL INH SCH ×4 (09:18→20:35)
[2019-07-27] MEDS: traMADol HCL 50 MG TAB PO PRN ×2 (10:52→21:01)
[2019-07-27] MEDS: PROMETHAZINE W/CODEINE SYR 5 ML UD PO PRN (13:52)
[2019-07-27] MEDS: SIMVASTATIN 20 MG TAB PO SCH (21:00)
[2019-07-27] MEDS: BIFIDOBACTERIUM INFANTIS 4 MG CAP PO SCH (21:02)
[2019-07-27] MEDS: BISACODYL TAB 5 MG TAB PO SCH (21:03)
[2019-07-27] MEDS: ENOXAPARIN SODIUM 40 MG/0.4 ML SYG SUBCU SCH (21:03)
[2019-07-27] MEDS: SENNOSIDES 25 MG PO SCH (21:06)
[2019-07-27] MEDS: diazePAM 5 MG TAB PO PRN (23:52)
[2019-07-28] MEDS ORDERED: ALBUTEROL SULFATE 2.5 MG/3 ML VIAL NEB ONE (03:31)
[2019-07-28] MEDS ORDERED: levoFLOXacin 500MG IV 100 ML IVPB ONE (07:11)
[2019-07-28] MEDS: traMADol HCL 50 MG TAB PO PRN ×2 (08:16→19:23)
[2019-07-28] MEDS: LISINOPRIL 10 MG TAB PO SCH (08:16)
[2019-07-28] MEDS: diazePAM 5 MG TAB PO PRN (08:16)
[2019-07-28] MEDS: levoFLOXacin 500MG IV 500 MG in PREMIX BAG 1 BAG IVPB SCH (08:17)
[2019-07-28] MEDS: cloNIDine HCL 0.1 MG TAB PO SCH (08:17)
[2019-07-28] MEDS: LABETALOL 200 MG TAB PO SCH ×2 (08:17→21:06)
[2019-07-28] MEDS: guaiFENesin ER TAB 600 MG TAB PO SCH ×2 (08:17→21:07)
[2019-07-28] MEDS: INDAPAMIDE 2.5 MG PO SCH (08:21)
[2019-07-28] MEDS: SODIUM CHLORIDE 0.9% (FLUSH) 10 ML SYG IV SCH ×2 (08:21→21:08)
[2019-07-28] MEDS: (Mirabegron [Myrbetriq] 25 MG) PO SCH (08:21)
[2019-07-28] MEDS: IPRATROPIUM/ALBUTEROL 3 ML VIAL INH SCH ×4 (08:28→20:07)
[2019-07-28] MEDS: ARFORMOTEROL TARTRATE 15 MCG/2 ML NEB NEB SCH ×2 (08:28→20:07)
--- NOTE | 2019-07-28 08:34 | PN ---
SUPERVISING PHYSICIAN: Ted Merida MD DATE: 07/27/19 SUBJECTIVE: The patient today says she feels worse than the did yesterday. She feels short of breath, she feels very weak. She is afraid to go home and afraid she is too weak to function by herself and her brother is not able to provide her any assistance. We did discuss getting a physical therapy evaluation once again and looking at maybe going to a SNF setting for continued rehabilitation and reconditioning. She has agreed that [facility] would be a good option and we discussed putting in a referral. She is not having anymore complaints of any nausea or vomiting, she has had no chest pain, she has remained afebrile. OBJECTIVE: VITAL SIGNS: Temperature 97.6. Pulse 85. Blood pressure 97/60. Respiratory rate 16. O2 saturation 88% on room air, saturation 92% on nasal cannula at rest. Weight 68.9 kg. GENERAL: Patient is resting comfortably, a little anxious, but appears to be in no acute distress. RESPIRATORY: Lung sounds diminished toward the bases with no obvious wheezing, rales or rhonchi. CARDIAC: Regular rate and rhythm. GASTROINTESTINAL: Abdomen is soft, nontender. Bowel sounds are positive. EXTREMITIES: No edema. NEUROLOGIC: Alert and oriented times three. LABORATORY: No additional laboratory studies were done today as her CBC was trending towards normal baseline levels as well as chemistry showing normal levels. RADIOLOGY: No repeat x-ray as there was no significant change on previous exams. ASSESSMENT: 1. Sepsis secondary to bilateral pneumonia, community-acquired. 2. Chronic obstructive pulmonary disease with exacerbation secondary to #1. 3. Anemia, normochromic/normocytic, probably of chronic illness. 4. Hyponatremia, now resolved. 5. History of hypertension, on medications and stable. 6. Chronic back pain. 7. Chronic constipation. PLAN: I was hoping to discharge the patient today, however, given that she had a significant change overnight requiring oxygen and she does not normally at home and has voiced she is significantly weak and is afraid to go home, we will keep her overnight for reevaluation in the morning with physical therapy as well as continued aggressive pulmonary hygiene for treatment of her sepsis and underlying pneumonia. A referral was sent I think this morning to [facility]. However, she has [employer], so it is going to take a couple of days. She is significantly deconditioned and certainly would benefit from skilled placement or custodial or Swing Bed because I do not think she is safe to go home at this point. Once she is able to go home, she will certainly need a sleep study. We will continue to work with her in regards to continued treatment for the underlying pneumonia and work to secure plans for discharge. Until then, we will continue to monitor and treat as needed. [facility][id number] [facility]
[2019-07-28] MEDS ORDERED: MAGNESIUM CITRATE 300 ML BTTL PO ONE (11:57)
--- NOTE | 2019-07-28 15:35 | PN ---
SUPERVISING PHYSICIAN: Bret Bryan MD DATE: 07/28/19 SUBJECTIVE: The patient feels like she is a little bit better today. She is still having a significant amount of coughing that is minimally productive. She still feels like she has not had an adequate bowel movement and requests some mag citrate. She has not had any nausea, vomiting or abdominal pain. She denies any chest pains. OBJECTIVE: VITAL SIGNS: Temperature 97.6. Pulse 64. Blood pressure 149/85. Respiratory rate 18. O2 saturation 94% on 2 liters nasal cannula at rest. Weight 68.9 kg. GENERAL: Patient is resting comfortably, a little anxious, but appears to be in no acute distress. RESPIRATORY: Lung sounds diminished toward the bases with no obvious wheezing, rales or rhonchi. CARDIAC: Regular rate and rhythm. GASTROINTESTINAL: Abdomen is soft, nontender. Bowel sounds are positive. EXTREMITIES: No edema. NEUROLOGIC: Alert and oriented times three. ASSESSMENT: 1. Sepsis secondary to bilateral pneumonia, community-acquired. 2. Chronic obstructive pulmonary disease with exacerbation secondary to #1. 3. Anemia, normochromic/normocytic, probably of chronic illness. 4. Hyponatremia, now resolved. 5. History of hypertension, on medications and stable. 6. Chronic back pain. 7. Chronic constipation. PLAN: We are still awaiting referral to [facility]. She will continue with current treatment plan with antibiotics and aggressive pulmonary hygiene. Again, I have encouraged ambulation. We are working to get her off oxygen as soon as possible. She continues with physical therapy. Until the patient can transition to outpatient management and halfway unit, we will continue to monitor and treat as needed. #[id number] [facility]
[2019-07-28] MEDS: BISACODYL TAB 5 MG TAB PO SCH (21:04)
[2019-07-28] MEDS: SENNOSIDES 25 MG PO SCH (21:04)
[2019-07-28] MEDS: BIFIDOBACTERIUM INFANTIS 4 MG CAP PO SCH (21:06)
[2019-07-28] MEDS: ENOXAPARIN SODIUM 40 MG/0.4 ML SYG SUBCU SCH (21:07)
[2019-07-28] MEDS: SIMVASTATIN 20 MG TAB PO SCH (21:07)
--- NOTE | 2019-07-29 05:55 | RAD ---
CHEST, TWO VIEW, XR CLINICAL HISTORY: pneumonia COMPARISON: 07/25/2019 TECHNIQUE: Frontal and lateral Chest. FINDINGS: Heart is mildly enlarged. Minimal aortic atherosclerosis. Normal pulmonary vascularity. Bilateral infrahilar atelectasis. Minimal bilateral pleural fluid. Lungs are hyperinflated. No pneumothorax. There is biapical pleural thickening. Right apical interstitial opacities persist. Mild lower thoracic spondylosis. Unremarkable soft tissues. Degenerative changes of the proximal right left humerus. IMPRESSION: 1. Persistent right apical interstitial infiltrates. Bilateral infrahilar atelectasis. Trace bilateral pleural fluid. 2. Hyperinflation. Electronically signed by: Claudia Mike DO 07/29/2019 5:54 AM [facility]
[2019-07-29] MEDS: ARFORMOTEROL TARTRATE 15 MCG/2 ML NEB NEB SCH ×2 (08:48→20:30)
[2019-07-29] MEDS: IPRATROPIUM/ALBUTEROL 3 ML VIAL INH SCH ×4 (08:48→20:09)
[2019-07-29] MEDS ORDERED: levoFLOXacin 500MG IV 100 ML IVPB ONE (08:48)
[2019-07-29] MEDS: LABETALOL 200 MG TAB PO SCH ×2 (08:58→20:57)
[2019-07-29] MEDS: levoFLOXacin 500MG IV 500 MG in PREMIX BAG 1 BAG IVPB SCH (08:58)
[2019-07-29] MEDS: guaiFENesin ER TAB 600 MG TAB PO SCH ×2 (08:58→20:56)
[2019-07-29] MEDS: (Mirabegron [Myrbetriq] 25 MG) PO SCH (09:00)
[2019-07-29] MEDS: cloNIDine HCL 0.1 MG TAB PO SCH (09:01)
[2019-07-29] MEDS: PROMETHAZINE W/CODEINE SYR 5 ML UD PO PRN (09:01)
[2019-07-29] MEDS: INDAPAMIDE 2.5 MG PO SCH (09:01)
[2019-07-29] MEDS: LISINOPRIL 10 MG TAB PO SCH (09:01)
[2019-07-29] MEDS: SODIUM CHLORIDE 0.9% (FLUSH) 10 ML SYG IV SCH ×2 (09:59→20:56)
[2019-07-29] MEDS: traMADol HCL 50 MG TAB PO PRN ×2 (13:23→20:59)
--- NOTE | 2019-07-29 19:29 | PN ---
SUPERVISING PHYSICIAN: Bret Bryan MD DATE: 07/29/19 SUBJECTIVE: The patient is lying in bed. It was reported by nursing that she had refused to get up and move about because her back hurt, which is a chronic problem. She has pain medications ordered, but tries to get out of getting out of bed or sitting up for meals. We discussed that physical therapy would start with her today and she was going to have to get up for her meals. She agreed to do so. She denied any chest pain, shortness of breath, nausea or vomiting. OBJECTIVE: VITAL SIGNS: Temperature 98.4. Heart rate 81. Blood pressure 120/60. Respiratory rate 18. O2 saturation 95% on 1 liter nasal cannula. RESPIRATORY: Somewhat diminished at the bases, but otherwise clear to auscultation. CARDIAC: Regular rate and rhythm. GASTROINTESTINAL: Abdomen is soft, nondistended, nontender. Bowel sounds are positive. NEUROLOGIC: Awake and alert. She gets somewhat forgetful, but otherwise oriented to person and place. LABORATORY: Blood cultures show no growth after 5 days. Chest x-ray shows persistent right apical interstitial infiltrate, bilateral infrahilar atelectasis, trace of bilateral pleural effusion with hyperinflation. All other labs and films have been reviewed via the EMR. ASSESSMENT: 1. Sepsis secondary to bilateral pneumonia, community-acquired. 2. Chronic obstructive pulmonary disease with exacerbation secondary to #1. 3. Anemia, normochromic/normocytic, probably of chronic illness. 4. Hyponatremia, now resolved. 5. History of hypertension, on medications and stable. 6. Chronic back pain. 7. Chronic constipation. PLAN: We will continue present supportive care. I will hold on any lab or chest x-rays for now as we are pending acceptance to [facility]. She has agreed to get up and I have ordered physical therapy for her twice daily. We expect for her to be transferred to [facility] tomorrow since we are awaiting her insurance approval of going to that facility. In the meantime, We will continue to monitor the patient closely and follow as needed. #[id number] MTDD
[2019-07-29] MEDS: BIFIDOBACTERIUM INFANTIS 4 MG CAP PO SCH (20:55)
[2019-07-29] MEDS: BISACODYL TAB 5 MG TAB PO SCH (20:55)
[2019-07-29] MEDS: ENOXAPARIN SODIUM 40 MG/0.4 ML SYG SUBCU SCH (20:56)
[2019-07-29] MEDS: SENNOSIDES 25 MG PO SCH (20:57)
[2019-07-29] MEDS: diazePAM 5 MG TAB PO PRN (20:58)
[2019-07-29] MEDS: SIMVASTATIN 20 MG TAB PO SCH (20:58)
[2019-07-29] MEDS: IV SET AND CAP CHANGE INJ INJ SCH (23:04)
[2019-07-30] MEDS ORDERED: ONDANSETRON INJ 4 MG/2 ML VIAL IV ONE (02:05)
[2019-07-30] MEDS ORDERED: levoFLOXacin 500MG IV 100 ML IVPB ONE (07:58)
[2019-07-30] MEDS: ARFORMOTEROL TARTRATE 15 MCG/2 ML NEB NEB SCH (08:00)
[2019-07-30] MEDS: cloNIDine HCL 0.1 MG TAB PO SCH (08:49)
[2019-07-30] MEDS: LABETALOL 200 MG TAB PO SCH (08:49)
[2019-07-30] MEDS: guaiFENesin ER TAB 600 MG TAB PO SCH (08:51)
[2019-07-30] MEDS: LISINOPRIL 10 MG TAB PO SCH (08:51)
[2019-07-30] MEDS: levoFLOXacin 500MG IV 500 MG in PREMIX BAG 1 BAG IVPB SCH (08:51)
[2019-07-30] MEDS: (Mirabegron [Myrbetriq] 25 MG) PO SCH (08:52)
[2019-07-30] MEDS: INDAPAMIDE 2.5 MG PO SCH (08:52)
[2019-07-30] MEDS: SODIUM CHLORIDE 0.9% (FLUSH) 10 ML SYG IV SCH (08:53)
[2019-07-30] MEDS: traMADol HCL 50 MG TAB PO PRN ×2 (09:24→13:25)
[2019-07-30 09:52] VITALS: BP 100/62; TEMP 97.8
[2019-07-30] MEDS: IPRATROPIUM/ALBUTEROL 3 ML VIAL INH SCH ×3 (12:43→16:00)
[2019-07-30 15:08] VITALS: O2SAT 98
--- NOTE | 2019-07-31 08:31 | DS ---
SUPERVISING PHYSICIAN: Bret Bryan MD DISCHARGE DIAGNOSIS: 1. Sepsis secondary to bilateral pneumonia, community-acquired. 2. Chronic obstructive pulmonary disease with exacerbation secondary to #1. 3. Anemia, normochromic/normocytic, probably of chronic illness. 4. Hyponatremia, now resolved. 5. History of hypertension, on medications and stable. 6. Chronic back pain. 7. Chronic constipation. HISTORY OF PRESENT ILLNESS: This is an 83-year-old female patient who came to the Emergency Room with her family. She has had a progressive cough and shortness of breath that has been ongoing for over 2 months. In the previous several days prior to admission, she had chills and fever. She has been seen by several providers but has had no antibiotics that she remembers. She does have a history of hypertension and it is reported from the Emergency Room that she had a mixup on her medications. Several of her medication compartments had multiple medications while others were empty. In the Emergency Room, her initial vital signs were temperature of 100, heart rate 75, blood pressure 176/64, respiratory rate 24, O2 saturation of 91%. She recently moved here from [place] in March and in [place] she was oxygen dependent. She does not have oxygen at this time. Her lab was done and WBC was 13,900 with a hemoglobin of 11.6 and hematocrit of 35. She did have a left shift on her differential. Sodium was 130, potassium 4.1, chloride 96, glucose 106, serum osmolality 262, lactic acid of 1. Alkaline phosphatase was slightly elevated at 124, troponin 0.02, C-reactive protein was 9.9. Urinalysis was basically unremarkable except she did have a small amount of leukocyte esterase present. Chest x-ray showed bilateral pulmonary infiltrate suspicious for pneumonia that is worse than previous x-ray. She was given some Levaquin as well as Decadron, multiple breathing treatments and fluids, and I was called for admission to the hospital. HOSPITAL COURSE: She was admitted to the hospital and the pneumonia guidelines were initiated. She had judicious fluids overnight during the first 24 hours. She was continued on Levaquin and she received several more doses of Decadron as there had been some unknown previous history of allergic reactions to steroids, but she tolerated the Decadron without any issues. Lab was closely followed. She had aggressive pulmonary hygiene that included both p.r.n. and scheduled nebulizer treatments. She received extensive chronic obstructive pulmonary disease education. She was given Lovenox for DVT prophylaxis and Protonix for ulcer prophylaxis. Her home medications were restarted. Over the next several days, she slowly improved. Brovana was started on her for chronic COPD medication. Ambulation study was ordered to qualify her for home oxygen. There was a wait to be completed on that testing until just prior to discharge. She did continue to have some shortness of breath, but that improved over the next few days. Physical therapy saw the patient and she was safe to be discharged. Initially, she was wanting to go to the care home, but after waiting several days for approval from the care home, they called and have refused her stay. Today, since they have refused her transfer to the care home, she will be discharged with home health. LABORATORY: She initially started with white count 13,900. Her final WBC was 11,000. Hemoglobin and hematocrit stabilized at 11.2 and 35.2. Chemistries have stabilized with electrolytes within normal limits and random glucose is 117. MICROBIOLOGY: Urine culture showed no growth after 36 hours. Final blood culture showed no growth after 5 days. Flu swab via PCR both A and B were negative. RADIOLOGY: Followup chest x-ray showed 1) Persistent right apical interstitial infiltrates, bilateral infrahilar atelectasis with a trace of bilateral pleural effusion. 2) Hyperinflation. DISCHARGE PLAN: She will be discharged home today in stable condition. She is to have [facility] as well as physical therapy. She is to resume her previous diet as well as increase her activity as tolerated. In addition to her routine home medications, she is to have Brovana nebulizer treatments as well as 5 additional days of Levaquin and promethazine with codeine cough syrup. She is to have a followup appointment with Dr. Hilary Mcgee on 08/06/19 at 1 PM. She is to return to the hospital or followup with Dr. Mcgee for any problems or complications. DISCHARGE MEDICATIONS: 1. Compazine. 2. Lisinopril. 3. Zofran. 4. Myrbetriq. 5. Tizanidine. 6. Rosuvastatin. 7. Labetalol. 8. Diazepam. 9. Clonidine. 10. Tramadol. 11. Indapamide. 12. Macrobid. 13. Sennoside. 14. Ipratropium albuterol. 15. Align. 16. Brovana nebulizers. 17. Promethazine with codeine. 18. Levaquin. #[id number] [facility]
== END 2019-07-30 16:00 | disposition home health service (06) | DRG 871 ==
LOC: ER 17:36 → MS 20:39 → OBSVTOIN 20:39
PROVIDERS: ADMIT Nurse Practitioner Acute Care; ATTEND Nurse Practitioner Acute Care
DX: A41.9 Sepsis, unspecified organism (principal); J18.9 Pneumonia, unspecified organism; J44.0 Chronic obstructive pulmonary disease with (acute) lower respiratory infection; J44.1 Chronic obstructive pulmonary disease with (acute) exacerbation; E87.1 Hypo-osmolality and hyponatremia; D63.8 Anemia in other chronic diseases classified elsewhere; I10 Essential (primary) hypertension; G89.29 Other chronic pain; M54.9 Dorsalgia, unspecified; K59.09 Other constipation; Z99.81 Dependence on supplemental oxygen; Z88.0 Allergy status to penicillin; Z88.1 Allergy status to other antibiotic agents; Z88.8 Allergy status to other drugs, medicaments and biological substances; Z79.899 Other long term (current) drug therapy

== ENCOUNTER 2019-09-25 10:47 | Inpatient (IN) | payer OTHER ==
[~2019-09-25 10:47] MED LIST: HYDROmorphone HCL INJ 2 MG/ML VIAL ONE
--- NOTE | 2019-09-25 10:58 | ED.PDOC ---
History of Present Illness - General Time Seen by Provider: 09/25/19 10:52 Source: patient Additional Information: 83yo F presents for evaluation after fall. The patient was in the kitchen when she sustained an accidental fall while walking with her walker. She landed on her right hip, which is the location of her pain. She denies ankle, knee or back pain. No head impact, LOC or neck pain. She denies weakness or numbness. Pt otherwise in baseline condition with no hx of recent illness. No other reported issues. - History of Present Illness Timing/Duration: 1-3 hours Improving Factors: nothing Allergies/Adverse Reactions: Allergies Amantadine Allergy (Verified 09/25/19 11:06) Cephalosporins Allergy (Verified 09/25/19 11:06) Penicillins Allergy (Verified 09/25/19 11:06) Home Medications: Ambulatory Orders Fosinopril Sodium 20 mg PO DAILY 07/23/19 Indapamide 2.5 mg PO DAILY 07/23/19 Ipratropium-Albuterol [Ipratropium [place]/Albut] 1 eliel INH Q6HR 07/23/19 Labetalol HCl [Labetalol Hydrochloride] 100 mg PO BID 07/23/19 Mirabegron [Myrbetriq] 25 mg PO DAILY 07/23/19 Rosuvastatin Calcium 10 mg PO DAILY 07/23/19 Arformoterol Tartrate Nebs [Brovana Nebs] 15 mcg NEB RTBID #30 neb 07/27/19 Review of Systems - Review of Systems Constitutional: Denies: chills, fever EENTM: Denies: blurred vision, double vision Respiratory: Denies: cough, short of breath Cardiology: Denies: chest pain, palpitations Gastrointestinal/Abdominal: Denies: abdominal pain, nausea, vomiting Genitourinary: Denies: dysuria, pain Musculoskeletal: States: joint pain, muscle pain. Denies: back pain, neck pain Skin: States: no symptoms reported Neurological: Denies: headache, numbness, weakness Hematologic/Lymphatic: States: no symptoms reported Past Medical History (General) - Patient Medical History Hx Seizures: No Hx Stroke: No Hx Dementia: No Hx Asthma: No Hx of COPD: Yes - diagnosed 5 years ago Hx Congestive Heart Failure: No Hx Pacemaker: No Hx Hypertension: Yes Hx Diabetes: No Hx Renal Disease: No Hx MRSA: No - Social History Hx Tobacco Use: No Hx Alcohol Use: No Hx Substance Use: No Hx Physical Abuse: No Hx Emotional Abuse: No Family Medical History - Family History Mother Family History: No Known Living Status: Hx Family;Other: Mother - - [place], HTN. Father - - [place], HTN Physical Exam - Physical Exam General Appearance: Alert, Other - Mild distress due to discomfort in R hip region Eye Exam: bilateral normal Ears, Nose, Throat: hearing grossly normal, normal pharynx Neck: non-tender, full range of motion, supple, normal inspection Respiratory: chest non-tender, lungs clear, normal breath sounds, no respiratory distress Cardiovascular/Chest: normal peripheral pulses, regular rate, rhythm, no edema Peripheral Pulses: dorsalis pedis,right: 1+ Gastrointestinal/Abdominal: non tender, soft Back Exam: no CVA tenderness, no vertebral tenderness Extremity: other - Tenderness over the R anteriolateral hip. No obvious deformity. Pelvis stable. Elbow and ankle without focal tenderness or deformity. No lumbar tenderness. NV intact. Neurologic: no motor/sensory deficits, alert, normal mood/affect, oriented x 3 Skin Exam: normal color, warm/dry Progress - Progress Progress: DDX: Fracture, sprain, strain, contusion, lyte disorder, anemia, infection, arrhythmia, dehydration. Ravinder Martínez MD. #[id number] 09/25/19 13:02 CT findings discussed with radiology. Discussed case with Dr. Sandhu who will consult pending Hospitalist admission. 09/25/19 13:08 09/25/19 13:22 Discussed with hospitalist (Guerita Bass). Will admit. Patient updated on findings and plan. - Results/Orders Results/Orders: 09/25/19 11:00 EKG STAT 09/25/19 12:44 Sodium Chloride 0.9% 1000ML [Ns 1000 ml] 1,000 ml IVS ONCE Laboratory Results - last 24 hr 09/25/19 09/25/19 11:31 11:31 WBC 6.8 RBC 4.16 L Hgb 12.8 Hct 37.7 MCV 90.7 MCH 30.8 MCHC 34.0 RDW 14.8 H Plt Count 220 MPV 7.4 Absolute Neuts (auto) 5.20 Absolute Lymphs (auto) 0.90 L Absolute Monos (auto) 0.40 Absolute Eos (auto) 0.30 Absolute Basos (auto) 0.00 Neutrophils % 77.2 Lymphocytes % 13.0 L Monocytes % 5.8 Eosinophils % 3.8 Basophils % 0.2 Sodium 123 L Potassium 3.1 L Chloride 90 L Carbon Dioxide 25 Anion Gap 11.1 L BUN 13 Creatinine 0.82 BUN/Creatinine Ratio 15.9 Random Glucose 121 H Serum Osmolality 249.1 L* Calcium 9.1 Total Bilirubin 0.7 AST 27 ALT 17 Alkaline Phosphatase 54 Serum Total Protein 6.7 Albumin 3.8 Globulin 2.9 Albumin/Globulin Ratio 1.3 Last Vital Signs Temp 97.6 F 09/25/19 12:00 Pulse 69 09/25/19 12:00 Resp 20 09/25/19 12:00 BP 156/101 09/25/19 12:00 Pulse Ox 94 L 09/25/19 12:00 - EKG/XRAY/CT EKG: Sinus - at rate 64. Normal intervals., no ST T wave changes XRAY: chest - CXR non-acute. R Sub cap fem neck. See formal read for details. CT: Pelvis: R sub cap fem neck fx and sacral injury. See formal read. Departure - Departure Clinical Impression: Hyponatremia Femoral neck fracture Qualifiers: Encounter type: initial encounter Fracture type: closed Laterality: right Qualified Code(s): S72.001A - Fracture of unspecified part of neck of right femur, initial encounter for closed fracture Sacral fracture, closed Qualifiers: Encounter type: initial encounter Zone of sacrum fracture: unspecified portion of sacrum Qualified Code(s): S32.10XA - Unspecified fracture of sacrum, initial encounter for closed fracture Fall from standing Qualifiers: Encounter type: initial encounter Qualified Code(s): W19.XXXA - Unspecified fall, initial encounter Time of Disposition: 13:24 Disposition: Admit Patient Condition: Fair Referrals: Hilary Mcgee MD [Primary Care Provider] - 1-2 Weeks Home Medications: Ambulatory Orders Fosinopril Sodium 20 mg PO DAILY 07/23/19 Indapamide 2.5 mg PO DAILY 07/23/19 Ipratropium-Albuterol [Ipratropium [place]/Albut] 1 eliel INH Q6HR 07/23/19 Labetalol HCl [Labetalol Hydrochloride] 100 mg PO BID 07/23/19 Mirabegron [Myrbetriq] 25 mg PO DAILY 07/23/19 Rosuvastatin Calcium 10 mg PO DAILY 07/23/19 Arformoterol Tartrate Nebs [Jose Nebs] 15 mcg NEB RTBID #30 neb 07/27/19 Decision To Admit - Decistion To Admit Decision to Admit Reason: Admit from ER Decision to Admit Date: 09/25/19 Decision to Admit Time: 13:25
[2019-09-25] MEDS ORDERED: MORPHINE SULFATE INJ 10 MG/ML VIAL IV ONE ×2 (11:01→13:02)
[2019-09-25] MEDS ORDERED: ONDANSETRON INJ 4 MG/2 ML VIAL IV ONE (11:01)
--- NOTE | 2019-09-25 12:11 | RAD ---
EXAM DESCRIPTION: Chest,1 View CLINICAL HISTORY: Fall COMPARISON: July 29, 2019 FINDINGS: The cardiac silhouette is unremarkable. Calcified bilateral hilar lymph nodes. Subsegmental atelectasis or scarring in the left lung base, stable. No airspace consolidation or pleural effusion. The lung volumes are within normal range. Calcified granulomas in both lungs. There is no pneumothorax or acute fracture. Degenerative changes in both shoulders. IMPRESSION: Old healed granulomatous disease and degenerative changes, no acute intrathoracic abnormality. Electronically signed by: Artemio Butler MD 09/25/2019 12:10 PM CDT
--- NOTE | 2019-09-25 12:13 | RAD ---
EXAM DESCRIPTION: Femur,Right CLINICAL HISTORY: 83 years Female, fall COMPARISON: None. FINDINGS: 4 views of the right femur show subtle cortical irregularity in the subcapital right femoral neck. No additional fracture or malalignment. No radiopaque foreign body or soft tissue gas. Mild to moderate degenerative changes in the right hip and knee. IMPRESSION: Question subcapital right femoral neck fracture. Dedicated right hip series or CT is suggested for further evaluation. Electronically signed by: Artemio Butler MD 09/25/2019 12:11 PM CDT
[2019-09-25] MEDS ORDERED: SODIUM CHLORIDE 0.9% 1000ML 1,000 ML IVS ONE (12:44)
[2019-09-25] MEDS ORDERED: SODIUM CHLORIDE 0.9% 1000ML 1,000 ML ONE (12:47)
--- NOTE | 2019-09-25 12:58 | CT ---
EXAM DESCRIPTION: Pelvis: Computed Tomography. CLINICAL HISTORY: Fall COMPARISON: None. TECHNIQUE: Spiral-axial scans 2.5 x 2.5 mm intervals through the pelvis: no water soluble barium contrast; no IV contrast. Coronal and sagittal 2.0 mm reconstructions. Total Exam DLP: 577 mGy-cm. This exam was performed according to our departmental CT dose-optimization program which includes automated exposure control, adjustment of the mA and/or kV according to patient size and/or use of iterative reconstruction technique; to reduce radiation dose to as low as reasonably achievable (ALARA). FINDINGS: Pelvic Organs: Retroflexed or retroverted uterus. Minimal fluid in the right adnexa. Mesentery: Stranding around the free fluid. No enlarged nodes. Small Bowel: Included segments normal caliber Terminal Ileum: Negative. Cecum: Minimally distended with gas and fluid. Normal caliber of the appendix. No inflammatory changes. Colon: Included segments with gas and fluid. Moderate redundancy of the sigmoid colon. Minimal distention by gas. Lumbar Spine and Bony Pelvis: Bulging L5-S1 disc and grade 1 anterolisthesis. Bilateral L5 pars sclerosis. Retrolisthesis L4-L5 with disc desiccation and disc space loss. Sclerosis bilateral L4 pars. Bilateral L4-L5 significant foraminal narrowing. Bilateral facet arthrosis at both levels. Diastases of the right SI joint compared to the left. Radiolucent line with minimal sclerosis extending through the mid right sacral facet abutting the right SI joint. Bilateral hip joints: Bilateral hip arthrosis and superior lateral narrowing with hypertrophic superior lateral acetabulum. Impaction of the lateral subcapital right femoral neck and disruption of the subcapital medial right femoral neck. Inguinal Canals: Negative. Tiny lymph nodes Pelvic Wall/Back Soft Tissues: Negative. IMPRESSION: 1. Angulated nondisplaced fracture of the subcapital right femoral neck with compression on the lateral aspect. Soft tissue swelling. No femoral head dislocation. Bilateral hip joint space narrowing with hypertrophic superior lateral acetabular spurs. 2. Minimal diastases of the right SI joint compared to the left. Nondisplaced fracture of the mid right anterior facet abutting the SI joint 3.. Uterus retroflexed or retroverted. Minimal fluid in the right adnexa. Right ovary not well seen. Consider nonemergent pelvic ultrasound. 4. Spondylosis L4-L5 and L5-S1 and spondylolisthesis. CRITICAL COMMUNICATION: The critical value was communicated directly by Dr. Loomis via phone call, with Dr. Martínez, at approximately 1250 hours, on September 25, 2019. Electronically signed by: Darrell Loomis MD 09/25/2019 12:57 PM CDT
--- NOTE | 2019-09-25 14:10 | HP ---
SUPERVISING PHYSICIAN: Bret Bryan MD CHIEF COMPLAINT: Right hip pain. 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 She had her walker next to the cabinet but somehow she fell in her kitchen and landed on her right hip. Her son was at the home when the incident happened. There were no other traumatic injuries, no loss of consciousness. Her vital signs on admission to the Emergency Room showed a temperature of 97.6, heart rate 71, blood pressure 189/101, respiratory rate 18, oxygen saturation 93%. Lab studies were done and showed WBC of 6.8, hemoglobin 12.9, hematocrit 37.7. Sodium 123, potassium 3.1, chloride 90, glucose 121, serum osmolality 249.1. Her femur x-ray showed question of subcapital right femoral neck fracture, dedicated right hip series or CT is suggested. Pelvis CT showed: 1. Angulated nondisplaced fracture of the subcapital right femoral neck with compression on the lateral aspect, soft tissue swelling, no femoral head dislocation, bilateral hip joint space narrowing with hypertrophic superior lateral acetabular spurs. 2. Minimal diathesis of the right S1 joint compared to the left. Nondisplaced fracture of the mid right anterior facet abutting the SI joint. 3. Uterus retroflexed or retroverted, minimal fluid in the right adnexa. Right ovary is not well seen. Consider nonemergent pelvic ultrasound. 4. Spondylosis L4 to L5 and L5 to S1 and spondylolisthesis. Emergency Room physician called Dr. Sandhu who agreed to surgical intervention tomorrow and I was called for hospital admission. PAST MEDICAL HISTORY: 1. Chronic obstructive pulmonary disease. 2. Chronic low back pain. 3. Hypertension. 4. Urinary retention. PAST SURGICAL HISTORY: 1. Hemorrhoidectomy. 2. Appendectomy. 3. Repair of rectal fistula. 4. Thumb surgery. 5. Eye surgery. CURRENT MEDICATIONS: 1. Duoneb. 2. Brovana. 3. Lisinopril. 4. Indapamide. 5. Labetalol. 6. Myrbetriq. 7. Simvastatin. ALLERGIES: Amantadine, cephalosporins and penicillins. FAMILY HISTORY: Noncontributory. SOCIAL HISTORY: She lives in [place]. She recently moved to [place] from [place] in March 2019. She denies smoking, ETOH or illicit drug use. She was subjected to secondhand smoke for most of her life. REVIEW OF SYSTEMS: Negative except as history of present illness. PHYSICAL EXAMINATION: VITAL SIGNS: Temperature 99.4, heart rate 72, blood pressure 139/65, respiratory rate 18, oxygen saturation 97% on 2 liters nasal cannula. GENERAL: This is an 83 year-old female patient lying in her hospital bed. She looks to be in moderate pain. HEENT: Normocephalic and atraumatic. Pupils are equal and reactive. Oropharynx is clear. NECK: Supple without mass. CHEST: Diminished breath sounds throughout. There are no wheezes or rhonchi noted. There is equal rise and fall of the chest with inspiration and expiration. CARDIOVASCULAR: Regular rate and rhythm. ABDOMEN: Soft, nondistended, non-tender. Bowel sounds are positive. EXTREMITIES: Bilateral pedal pulses are palpable at +2. No cyanosis, clubbing, or edema. She does have some tenderness to that right lateral hip but at this point there is no ecchymosis. NEUROLOGIC: She is awake, alert and oriented x 3. Cranial nerves II through XII are grossly intact as tested. RADIOLOGY: Chest x-ray shows old healed granulomatous disease and degenerative changes. No acute intrathoracic abnormality. All other labs and films are as per the history of present illness. ASSESSMENT: 1. Right femoral neck fracture status post same-level fall with plans for surgical intervention tomorrow per Dr. Shaka Sandhu, orthopedic surgeon. He plans to do a right hemiarthroplasty. 2. Chronic obstructive pulmonary disease without acute exacerbation. 3. Hypertension. 4. Chronic back pain. PLAN: The patient has been admitted to the hospital. She will be made n.p.o. at midnight and I have consulted Dr. Sandhu for surgical intervention tomorrow. His orthopedic orders have been initiated and 2 units of packed red blood cells have been typed and crossed for surgery tomorrow. She is allergic to cephalosporins so we will have clindamycin security control room officer to OR. Her home medications have been restarted for tomorrow night and Sunday morning. She will have a PPI for ulcer prophylaxis and she will also take her labetalol with a few sips of water in the morning prior to surgery. I have also started her on p.r.n. and scheduled nebulizer treatments. It is to be noted that the patient was here about 2 months ago and at that time we had tried to get her oxygen at home and for some reason it was not completed. She was also to have what I assume is a sleep study that she did not dp in hospital but she did an at-home study, I am not sure what those results are but she has not been on oxygen at home and when she lived in [place] she did have oxygen. She did say that the morphine was not holding her pain so I changed that to Dilaudid. I have encouraged her good pulmonary hygiene and will continue to monitor closely and follow as needed. #[id number] [facility]
[2019-09-25] MEDS ORDERED: SODIUM CHLORIDE 0.9% (FLUSH) 10 ML SYG IV PRN (16:01)
[2019-09-25] MEDS ORDERED: ONDANSETRON INJ 4 MG/2 ML VIAL IV PRN (16:01)
[2019-09-25] MEDS ORDERED: ALBUTEROL SULFATE 2.5 MG/3 ML VIAL NEB PRN (16:01)
[2019-09-25] MEDS ORDERED: MORPHINE SULFATE INJ 10 MG/ML VIAL IV PRN (16:01)
[2019-09-25] MEDS ORDERED: KCL 20 MEQ/NS 1,000 ML IVS PRN (16:15)
[2019-09-25] MEDS ORDERED: HYDROmorphone HCL INJ 2 MG/ML VIAL IV PRN (17:00)
[2019-09-25] MEDS ORDERED: HYDROmorphone HCL INJ 2 MG/ML VIAL ONE (17:42)
[2019-09-25] MEDS: LABETALOL 200 MG TAB PO SCH (17:49)
[2019-09-25] MEDS: IV SET AND CAP CHANGE INJ INJ SCH (18:26)
[2019-09-25] MEDS: SODIUM CHLORIDE 0.9% (FLUSH) 10 ML SYG IV SCH (20:37)
[2019-09-25] MEDS: SIMVASTATIN 20 MG TAB PO SCH (20:38)
[2019-09-25] MEDS: IPRATROPIUM/ALBUTEROL 3 ML VIAL INH SCH (21:37)
[2019-09-25] MEDS: ARFORMOTEROL TARTRATE 15 MCG/2 ML NEB NEB SCH (21:37)
[2019-09-25] MEDS: HYDROmorphone HCL INJ 2 MG/ML VIAL IV PRN (23:45)
[2019-09-26] MEDS ORDERED: PANTOPRAZOLE SODIUM IV 40 MG VIAL ONE (04:27)
[2019-09-26] MEDS: HYDROmorphone HCL INJ 2 MG/ML VIAL IV PRN (04:48)
[2019-09-26] MEDS: LABETALOL 200 MG TAB PO SCH ×2 (05:31→20:48)
[2019-09-26] MEDS: PANTOPRAZOLE SODIUM IV 40 MG VIAL IV SCH (06:01)
[2019-09-26] MEDS ORDERED: CLINDAMYCIN IV 900MG 50 ML IVPB ONE ×3 (06:05→19:54)
[2019-09-26] MEDS ORDERED: SODIUM CHLORIDE 0.9% 250ML 250 ML ONE (06:05)
[2019-09-26] MEDS ORDERED: VANCOMYCIN HCL INJ 1,000 MG VIAL IVPB ONE ×5 (06:05→09:01)
[2019-09-26] MEDS ORDERED: BUPIVACAINE 0.5% 30 ML VIAL INJ ONE ×2 (06:59→08:59)
[2019-09-26] MEDS ORDERED: ceFAZolin SODIUM 1 GM VIAL ONE (06:59)
[2019-09-26] MEDS ORDERED: CLINDAMYCIN IV 900MG 900 MG in PREMIX BAG 1 BAG IVPB ONE (07:00)
[2019-09-26] MEDS ORDERED: VANCOMYCIN HCL INJ 1,000 MG in SODIUM CHLORIDE 0.9% 250ML 250 ML IVPB ONE (07:00)
[2019-09-26] MEDS ORDERED: BUPIVACAINE LIPOSOME 13.3 MG/ML VIAL INJ ONE ×2 (07:00→09:02)
[2019-09-26] MEDS ORDERED: TRANEXAMIC ACID INJ 1,000 MG in SODIUM CHLORIDE 0.9% 100ML 100 ML IVPB ONE (07:00)
[2019-09-26] MEDS ORDERED: ceFAZolin SODIUM 2 GM in SODIUM CHLORIDE 0.9% 100ML 100 ML IVPB ONE (07:00)
[2019-09-26] MEDS ORDERED: SODIUM CHLORIDE 0.9% 100ML 100 ML IVPB ONE (07:39)
[2019-09-26] MEDS ORDERED: TRANEXAMIC ACID 1,000 MG/10 ML VIAL ONE (07:39)
[2019-09-26] MEDS ORDERED: SODIUM CHLORIDE 0.9% 1000ML 1,000 ML ONE ×2 (07:41→09:59)
[2019-09-26] MEDS ORDERED: fentaNYL CITRATE INJ 50 MCG/ML 2 ML AMP ONE (07:44)
[2019-09-26] MEDS ORDERED: KETAMINE HCL 100 MG/ML VIAL ONE (07:44)
[2019-09-26] MEDS ORDERED: MIDAZOLAM INJ 2 MG/2 ML VIAL ONE (07:47)
[2019-09-26] MEDS ORDERED: ePHEDrine SULF 50 MG/ML ONE (08:00)
[2019-09-26] MEDS ORDERED: ONDANSETRON INJ 4 MG/2 ML VIAL ONE (08:00)
[2019-09-26] MEDS ORDERED: PROPOFOL 200 MG/20 ML VIAL IV ONE (08:00)
[2019-09-26] MEDS ORDERED: EPINEPHrine HCL AMP 1 MG/ML AMP ONE (08:00)
[2019-09-26] MEDS ORDERED: DEXAMETHASONE INJ 10 MG/ML VIAL ONE (08:00)
[2019-09-26] MEDS: IPRATROPIUM/ALBUTEROL 3 ML VIAL INH SCH ×4 (08:20→19:50)
[2019-09-26] MEDS: SODIUM CHLORIDE 0.9% (FLUSH) 10 ML SYG IV SCH ×2 (09:47→20:48)
--- NOTE | 2019-09-26 11:40 | RAD ---
5 radiographs of the pelvis and right hip Indication: POSTOP Comparison: Radiographs September 2019 Impression: Right total hip arthroplasty noted with a cemented femoral component. Associated postsurgical changes of the soft tissues noted. The bones are markedly osteopenic. Given this limitation, no new fracture compared to the prior CT. Moderate left hip osteoarthritis present. Lower lumbar disc disease. Electronically signed by: Kael Trujillo MD 09/26/2019 11:39 AM CDT
[2019-09-26] MEDS: ARFORMOTEROL TARTRATE 15 MCG/2 ML NEB NEB SCH ×2 (11:49→19:50)
[2019-09-26] MEDS ORDERED: MAGNESIUM SULFATE PREMIX 2GM 2 GM in PREMIX BAG 1 BAG IVPB ONE (12:47)
[2019-09-26] MEDS ORDERED: BENZOCAINE-MENTH LOZ (CEPACOL) 1 EA LOZ MT PRN (12:50)
[2019-09-26] MEDS ORDERED: MAGNESIUM HYDROXIDE 30 ML UD PO PRN (12:50)
[2019-09-26] MEDS ORDERED: ALUMINUM & MAGNESIUM HYDROXIDE 30 ML UD PO PRN (12:50)
[2019-09-26] MEDS ORDERED: BISACODYL SUPPOSITORY 10 MG PR PRN (12:50)
[2019-09-26] MEDS ORDERED: ACETAMINOPHEN 500 MG TAB PO PRN (12:51)
[2019-09-26] MEDS ORDERED: MAGNESIUM SULFATE PREMIX 2GM 50 ML IVPB ONE (13:51)
[2019-09-26] MEDS ORDERED: CLINDAMYCIN HCL CAP 150 MG CAP PO SCH (15:00)
[2019-09-26] MEDS: CELECOXIB 100 MG CAP PO SCH (16:22)
[2019-09-26] MEDS: KCL 20MEQ/D5NS 1,000 ML IVS PRN (16:22)
[2019-09-26] MEDS: CLINDAMYCIN IV 900MG 900 MG in PREMIX BAG 1 BAG IVPB SCH ×2 (16:22→23:30)
--- NOTE | 2019-09-26 18:08 | PN ---
SUPERVISING PHYSICIAN: Bret Bryan MD DATE: 09/26/19 SUBJECTIVE: The patient has just returned from PACU status post hemiarthroplasty of the right hip. She is alert. She did have a spinal block and is noting good pain control. She is alert. She has no further complaints. OBJECTIVE: VITAL SIGNS: Temperature 97.7. Pulse 79. Blood pressure 134/78. Respirations 16. Saturation 97% on 3 liters nasal cannula. GENERAL: The patient is resting comfortably. She does not appear to be in any acute distress. Her son is at the bedside. She is alert. CHEST: Lung sounds are essentially clear, just diminished towards the bases. HEART: Regular rate and rhythm. ABDOMEN: Soft, nontender, positive bowel sounds. EXTREMITIES: Right hip shows a large dressing in place which is clean and dry. Distal pulses are 2+ bilaterally. LABORATORY: White count 8,800, hemoglobin 11.2, hematocrit 33.1, platelet count 184,000. Differential without a left shift. Chemistries showed sodium to be improving. It was up to 129 postoperatively with chloride 98. BUN 14, creatinine 1.04. Magnesium low at 1.4. MICROBIOLOGY: Urine culture is still pending. RADIOLOGY: No additional radiographic studies other than postoperative imaging. ASSESSMENT: 1. Right femoral neck fracture status post same-level fall, postoperative #0 for right hemiarthroplasty. 2. Electrolyte imbalance to include hypomagnesemia. 3. Chronic obstructive pulmonary disease without signs of acute exacerbation. 4. Urinary tract infection with cultures pending. 5. Hypertension, stable. 6. Chronic back pain. PLAN: We will follow the patient as she continues through her postoperative phase deferring orthopedic management to Dr. Sandhu and Physical Therapy. I have been given verbal acceptance by nurses that the patient once able to be discharged she has been accepted to inpatient rehab at [facility]. I did discuss with her as well as her son plan for discharge to rehab. They are in agreement with that plan of care. I am not sure exactly when that will occur, either tomorrow after Physical Therapy evaluation or Sunday when Dr. Sandhu decides to release the patient for discharge as she has not yet had her first dressing change. She will remain on DVT prophylaxis per protocol with Lovenox. We resumed her home medications as appropriate to her care. We will continue with pain management as needed. She is currently on antibiotic coverage with vancomycin and clindamycin which we will continue awaiting culture results on her urine and treat as appropriate after those result. I anticipate we will either discharge tomorrow or Sunday. Until then, we will continue to monitor and treat as needed. #[id number]; #[id number] [facility]
[2019-09-26] MEDS: DOCUSATE CALCIUM 240 MG CAP PO SCH (20:47)
[2019-09-26] MEDS: SIMVASTATIN 20 MG TAB PO SCH (20:47)
[2019-09-26] MEDS: CYCLOBENZAPRINE HCL 10 MG TAB PO PRN (20:48)
[2019-09-26] MEDS ORDERED: LABETALOL HCL 100 MG PO SCH (21:00)
[2019-09-26] MEDS: ENOXAPARIN SODIUM 30 MG/0.3 ML SYG SUBCU SCH (23:30)
[2019-09-27] MEDS: PROMETHAZINE W/CODEINE SYR 6.25 MG/10 MG/5 ML UD PO PRN ×2 (01:25→08:43)
[2019-09-27] MEDS: KCL 20MEQ/D5NS 1,000 ML IVS PRN ×2 (02:35→17:15)
[2019-09-27] MEDS ORDERED: CLINDAMYCIN IV 900MG 50 ML IVPB ONE ×3 (05:28→16:46)
[2019-09-27] MEDS: CLINDAMYCIN IV 900MG 900 MG in PREMIX BAG 1 BAG IVPB SCH ×3 (05:30→17:15)
[2019-09-27] MEDS: PANTOPRAZOLE SODIUM IV 40 MG VIAL IV SCH (05:55)
[2019-09-27] MEDS ORDERED: SODIUM CHLORIDE 0.9% 250ML 250 ML ONE (08:19)
[2019-09-27] MEDS ORDERED: VANCOMYCIN HCL INJ 1,000 MG VIAL IVPB ONE (08:20)
[2019-09-27] MEDS: NON-FORMULARY MEDICATION 1 EA MIS (Mirabegron [Myrbetriq] 25 MG) PO SCH (08:42)
[2019-09-27] MEDS: MAGNESIUM OXIDE 400 MG TAB PO SCH (08:42)
[2019-09-27] MEDS: LABETALOL 200 MG TAB PO SCH ×2 (08:42→20:44)
[2019-09-27] MEDS: INDAPAMIDE 2.5 MG PO SCH (08:42)
[2019-09-27] MEDS: CELECOXIB 100 MG CAP PO SCH ×2 (08:42→17:15)
[2019-09-27] MEDS: LISINOPRIL 10 MG TAB PO SCH (08:42)
[2019-09-27] MEDS: SODIUM CHLORIDE 0.9% (FLUSH) 10 ML SYG IV SCH ×2 (08:43→20:45)
[2019-09-27] MEDS ORDERED: MAGNESIUM SULFATE PREMIX 2GM 2 GM in PREMIX BAG 1 BAG IVPB ONE (08:51)
[2019-09-27] MEDS ORDERED: VANCOMYCIN HCL INJ 750 MG in SODIUM CHLORIDE 0.9% 250ML 250 ML IVPB SCH (09:00)
[2019-09-27] MEDS: IPRATROPIUM/ALBUTEROL 3 ML VIAL INH SCH ×4 (09:05→20:50)
[2019-09-27] MEDS: ARFORMOTEROL TARTRATE 15 MCG/2 ML NEB NEB SCH ×2 (09:05→20:50)
[2019-09-27] MEDS ORDERED: MAGNESIUM SULFATE PREMIX 2GM 50 ML IVPB ONE (11:31)
[2019-09-27] MEDS: ENOXAPARIN SODIUM 30 MG/0.3 ML SYG SUBCU SCH ×2 (11:37→22:37)
[2019-09-27] MEDS: guaiFENesin ER TAB 600 MG TAB PO SCH ×2 (13:29→20:45)
--- NOTE | 2019-09-27 14:16 | PN ---
DATE: 09/27/19 SUBJECTIVE: The patient is doing much better today. She stated her pain is well-contracted. OBJECTIVE: VITAL SIGNS: She is afebrile. Vital signs are stable. EXTREMITIES: Dressing is clean, dry and intact. ASSESSMENT: 1. Status post hemiarthroplasty. PLAN: At this point, the patient is to continue on with weightbearing as tolerated. She has been accepted for transfer to [facility] and will get her going out there on Sunday. #[id number] [facility]D
--- NOTE | 2019-09-27 16:39 | PN ---
SUPERVISING PHYSICIAN: Bret Bryan MD DATE: 09/27/19 SUBJECTIVE: The patient is sitting in the bedside chair. She notes her pain is fairly well controlled. She did have a cough last night and requested some cough medicine. She does have a little bit of chest cough, congestion type sound but but no obvious wheezing or any shortness of breath. She denies chest pain. She is starting to have a little bit of diarrhea I think associated with her antibiotics and will start her on Align.. OBJECTIVE: VITAL SIGNS: Temperature 98. Pulse 74. Blood pressure 105/61. Respirations 16. Saturation 98% on 1 liter nasal cannula at rest. I&O: Positive balance of 850, weight 64.4 kg. GENERAL: The patient is resting comfortably in the bedside chair. She is alert. CHEST: Lung sounds are diminished towards the bases. No obvious rhonchi, rales, or wheezes. She has a little bit of a wet cough. HEART: Regular rate and rhythm. ABDOMEN: Soft, nontender, positive bowel sounds. EXTREMITIES: Right hip shows a large dressing in place which is clean and dry. Distal pulses are 2+ bilaterally. Capillary refill brisk. NEUROLOGIC: She is alert and oriented x 3. LABORATORY: Postoperative hemoglobin 9.6, hematocrit 28.7. Chemistries show a stable sodium at 129. Potassium down slightly to 2.5. Magnesium low but improved from yesterday at 1.6. BUN 13, creatinine 0.8. MICROBIOLOGY: Urine culture is still pending. RADIOLOGY: No additional radiographic studies. ASSESSMENT: 1. Right femoral neck fracture status post same-level fall, postoperative #1 for right hemiarthroplasty. 2. Electrolyte imbalance to include hypomagnesemia and hyponatremia improving with fluids. 3. Chronic obstructive pulmonary disease without signs of acute exacerbation. 4. Urinary tract infection with cultures pending. 5. Hypertension, stable. 6. Chronic back pain. PLAN: We will continue to follow the patient and defer orthopedic management to Dr. Sandhu. She does remain on aggressive pulmonary hygiene. She is encouraged to continue with incentive spirometry. She is working with physical therapy and did okay in that regard. We still have plans to transfer her to [facility] which I believe will happen on Sunday at Dr. Sandhu's request, I don't know it there is a bed available until then but we will continue to monitor. She is on Lovenox per protocol. She continues on antibiotic coverage with vancomycin and clindamycin. Will monitor her urine cultures and treat appropriately. Until we can transition her to outpatient management, we will continue to monitor and treat as needed #[id number] MTDD
[2019-09-27] MEDS: SIMVASTATIN 20 MG TAB PO SCH (20:44)
[2019-09-27] MEDS: BIFIDOBACTERIUM INFANTIS 4 MG CAP PO SCH (20:45)
[2019-09-27] MEDS: DOCUSATE CALCIUM 240 MG CAP PO SCH (20:46)
[2019-09-28] MEDS: PANTOPRAZOLE SODIUM IV 40 MG VIAL IV SCH (06:09)
[2019-09-28] MEDS: CELECOXIB 100 MG CAP PO SCH ×2 (07:52→17:00)
[2019-09-28] MEDS: BIFIDOBACTERIUM INFANTIS 4 MG CAP PO SCH ×2 (08:15→20:19)
[2019-09-28] MEDS: MAGNESIUM OXIDE 400 MG TAB PO SCH (08:15)
[2019-09-28] MEDS: guaiFENesin ER TAB 600 MG TAB PO SCH ×2 (08:15→20:19)
[2019-09-28] MEDS: LABETALOL 200 MG TAB PO SCH ×2 (08:16→20:20)
[2019-09-28] MEDS: LISINOPRIL 10 MG TAB PO SCH (08:16)
[2019-09-28] MEDS: SODIUM CHLORIDE 0.9% (FLUSH) 10 ML SYG IV SCH ×2 (08:16→20:19)
[2019-09-28] MEDS: NON-FORMULARY MEDICATION 1 EA MIS (Mirabegron [Myrbetriq] 25 MG) PO SCH (08:23)
[2019-09-28] MEDS: INDAPAMIDE 2.5 MG PO SCH (08:23)
[2019-09-28] MEDS: IPRATROPIUM/ALBUTEROL 3 ML VIAL INH SCH ×4 (08:42→20:40)
[2019-09-28] MEDS: ARFORMOTEROL TARTRATE 15 MCG/2 ML NEB NEB SCH ×2 (08:42→20:40)
[2019-09-28] MEDS: ENOXAPARIN SODIUM 30 MG/0.3 ML SYG SUBCU SCH ×2 (14:04→22:36)
--- NOTE | 2019-09-28 16:12 | PN ---
SUPERVISING PHYSICIAN: Bret Bryan MD DATE: 09/28/19 SUBJECTIVE: The patient continues to do well. She still has a fairly productive cough but has not had any shortness of breath. No chest pain, nausea or vomiting. She has had a little diarrhea since associated with antibiotics. OBJECTIVE: VITAL SIGNS: Temperature 98.4. Pulse 80. Blood pressure 134/81. Respirations 16. Saturation 95% on room air. . GENERAL: The patient is resting comfortably, does not appear to be in any acute distress. CHEST: Clear to auscultation. . HEART: Regular rate and rhythm. ABDOMEN: Soft, nontender, positive bowel sounds. EXTREMITIES: Right hip has surgical dressing in place. Distal pulses are 2+ bilaterally.. NEUROLOGIC: She is alert and oriented x 3. LABORATORY: No additional laboratory today. Electrolytes have been fairly stable. She does have persistent hyponatremia. MICROBIOLOGY: C-diff toxin A and B were negative. Urine culture is still pending. ASSESSMENT: 1. Right femoral neck fracture status post same-level fall, postoperative #2 for right hemiarthroplasty. 2. Electrolyte imbalance to include hypomagnesemia and hyponatremia improving with fluids. 3. Chronic obstructive pulmonary disease without signs of acute exacerbation. 4. Urinary tract infection with cultures pending. 5. Hypertension, stable. 6. Chronic back pain. PLAN: We will continue to follow the patient as she progresses through her physical therapy. For any further management, we will defer orthopedic management to Dr. Sandhu. I believe we are still waiting on a bed from [facility] which hopefully will be in place tomorrow. I have changed her to oral antibiotics with Cipro awaiting final urine culture results. She continues to be encouraged to do deep breathing exercises and aggressive bronchial hygiene. Until we can transition her to outpatient management, we will continue to monitor and treat as needed #[id number] MTDD
[2019-09-28] MEDS: IV SET AND CAP CHANGE INJ INJ SCH (17:33)
[2019-09-28] MEDS: CYCLOBENZAPRINE HCL 10 MG TAB PO PRN (18:14)
[2019-09-28] MEDS ORDERED: CIPROFLOXACIN 250 MG TAB ONE (19:00)
[2019-09-28] MEDS: SIMVASTATIN 20 MG TAB PO SCH (20:19)
[2019-09-28] MEDS: DOCUSATE CALCIUM 240 MG CAP PO SCH (20:19)
[2019-09-28] MEDS: CIPROFLOXACIN 250 MG TAB PO SCH (20:21)
[2019-09-29] MEDS: PANTOPRAZOLE SODIUM IV 40 MG VIAL IV SCH (06:01)
[2019-09-29] MEDS: CELECOXIB 100 MG CAP PO SCH (07:20)
[2019-09-29] MEDS: IPRATROPIUM/ALBUTEROL 3 ML VIAL INH SCH ×2 (08:00→13:19)
[2019-09-29] MEDS: ARFORMOTEROL TARTRATE 15 MCG/2 ML NEB NEB SCH (08:00)
--- NOTE | 2019-09-29 08:40 | CONS ---
CHIEF COMPLAINT: Right hip pain. HISTORY OF PRESENT ILLNESS: Ms. Soto is an 83-year-old female with a history of a fall while she was at home. 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 She had the acute onset of pain after falling and was taken to the Emergency Room. X-rays showed a fracture of the hip. She denies any other significant pain and no other injury. I was consulted for possible surgical intervention. PAST MEDICAL HISTORY: 1. Chronic obstructive pulmonary disease. 2. Hypertension. 3. Urinary retention. PAST SURGICAL HISTORY: 1. Hemorrhoidectomy. 2. Appendectomy. 3. Eye surgery. 4. Repair of rectal fistula. CURRENT MEDICATIONS: 1. DuoNeb. 2. Brovana. 3. Lisinopril. 4. Indapamide. 5. Labetalol. 6. Myrbetriq. 7. Simvastatin. ALLERGIES: AMANTADINE, CEPHALOSPORINS, PENICILLIN. SOCIAL HISTORY: The patient does not drink, smoke or use any illicit drugs. FAMILY HISTORY: Noncontributory. REVIEW OF SYSTEMS: Negative except as indicated in the History of Present Illness. PHYSICAL EXAMINATION: VITAL SIGNS: Temperature 99. Heart rate 72. Blood pressure 139/65. Respirations 18. O2 saturation 97% on 2 liters. MENTAL STATUS: The patient is awake, alert, and is able to give a good history and participate in the physical. The patient is oriented to person, place and time. SKIN: Normal tone and turgor. HEENT: Normocephalic, atraumatic. Pupils equal, round and reactive. Mucosal membranes are moist. NECK: Normal range of motion. No thyromegaly, no lymphadenopathy. CHEST: Normal respiratory excursion. CARDIAC: Regular rate and rhythm. No murmurs, rubs or gallops. MUSCULOSKELETAL: Bilateral upper extremities show full range of motion without pain. She has intact sensation. They are warm and well perfused. The skin is intact. There are no deformities. The left lower extremity shows no deformity. She had intact sensation. It is warm and well perfused. There are no outward signs of trauma. She has full flexion and extension strength at the ankle. The right lower extremity shows no significant deformity, however, there is severe pain on attempted range of motion of the hip. She has intact sensation. The extremity is warm and well perfused. She has no outward signs of trauma and has full dorsiflexion and plantar flexion strength. RADIOLOGY: X-rays show a displaced femoral neck fracture. ASSESSMENT: 1. Femoral neck fracture. PLAN: The plan at this point is hemiarthroplasty. We have discussed the risks, benefits, and alternatives to that and the patient has given informed consent. #[id number] MTDD
[2019-09-29] MEDS: LABETALOL 200 MG TAB PO SCH (08:50)
[2019-09-29] MEDS: INDAPAMIDE 2.5 MG PO SCH (08:50)
[2019-09-29] MEDS: NON-FORMULARY MEDICATION 1 EA MIS (Mirabegron [Myrbetriq] 25 MG) PO SCH (08:50)
[2019-09-29] MEDS: guaiFENesin ER TAB 600 MG TAB PO SCH (08:51)
[2019-09-29] MEDS: LISINOPRIL 10 MG TAB PO SCH (08:51)
[2019-09-29] MEDS: MAGNESIUM OXIDE 400 MG TAB PO SCH (08:51)
[2019-09-29] MEDS: CIPROFLOXACIN 250 MG TAB PO SCH (08:51)
[2019-09-29] MEDS: BIFIDOBACTERIUM INFANTIS 4 MG CAP PO SCH (08:51)
[2019-09-29] MEDS: SODIUM CHLORIDE 0.9% (FLUSH) 10 ML SYG IV SCH (08:51)
--- NOTE | 2019-09-29 08:52 | OP ---
PREOPERATIVE DIAGNOSIS: 1. Right femoral neck fracture. POSTOPERATIVE DIAGNOSIS: 1. Right femoral neck fracture. PROCEDURE: 1. Hemiarthroplasty. SURGEON: Shaka Sandhu MD. AUTO PARTS MANAGER: Darrell Ramsey CST, SA-C. ANESTHESIA: General. COMPLICATIONS: None. FINDINGS: Displaced femoral neck fracture. INDICATION: Ms. Soto has a history of a fall that occurred on the day of presentation. She had the acute onset of pain. After that, she was taken to the Emergency Room. X-rays revealed a fracture of the femoral neck. We discussed the risks, benefits and alternatives to operative therapy and she gave informed consent. PROCEDURE: The patient was brought to the Operating Room and placed in supine position. Anesthesia was induced and the patient was transitioned into the lateral decubitus position. The leg and hemipelvis were sterilely prepped and draped and an incision was made centered on the greater trochanter with extension both proximally and distally. Dissection was carried down to the iliotibial band which was sharply incised along the course of its fibers. A Charnley retractor was placed and the abductor musculature was identified. The anterior one-third of the abductor musculature was elevated off the greater trochanter using electrocautery and the capsule was incised. The femoral head was removed and the primary femoral neck cut was made. The acetabulum was examined and found to be free of any significant defect, therefore attention was focused on the femur. The femoral canal was sequentially broached until an appropriate sized trial prosthesis was placed. A trial femoral head was placed and the hip was reduced. The hip was taken through a full range of motion and demonstrated stability without impingement or pending dislocation and the leg length appeared to be paresthesias. Following trialing, the trial component was removed and the femoral canal was prepared for cementation of the prosthesis. A distal cement restrictor was placed and the final component was cemented into place. The excess cement was removed and the remaining cement was allowed to cure. The final head was impacted and the hip was reduced, taken through a full range of motion, and found to be stable without impingement. The wound was thoroughly irrigated and the abductor musculature was reapproximated to the greater trochanter through drill holes using Ethibond. The repair was augmented with PDS suture and the iliotibial band was subsequently closed. The subcutaneous tissues were closed with a combination of running and interrupted subcuticular stitches, a sterile dressing was placed, and the patient was transitioned into the supine position. The patient was awoken from anesthesia and taken to the Recovery Room in stable condition. POSTOPERATIVE PLAN: The patient will be weight-bearing as tolerated on postoperative day 1. [facility][id number] [facility]
[2019-09-29] MEDS ORDERED: CITALOPRAM HBR 20 MG TAB PO SCH (10:00)
[2019-09-29] MEDS: ENOXAPARIN SODIUM 30 MG/0.3 ML SYG SUBCU SCH (10:17)
[2019-09-29 12:22] VITALS: BP 164/88; TEMP 98.4
[2019-09-29] MEDS: CYCLOBENZAPRINE HCL 10 MG TAB PO PRN (13:18)
[2019-09-29 13:25] VITALS: O2SAT 97
[2019-09-29] MEDS ORDERED: MAGNESIUM HYDROXIDE 30 ML UD PO ONE (21:00)
[2019-09-29] MEDS ORDERED: BISACODYL SUPPOSITORY 10 MG PR ONE (21:00)
--- NOTE | 2019-10-15 13:38 | DS ---
SUPERVISING PHYSICIAN: Adalberto Velasco MD DISCHARGE DIAGNOSES: 1. Right femoral neck fracture status post same-level fall, postoperative #3 for right hemiarthroplasty. 2. Electrolyte imbalance to include hypomagnesemia and hyponatremia, improved. 3. Chronic obstructive pulmonary disease without signs or symptoms of acute exacerbation. 4. Urinary tract infection with cultures pending. 5. Hypertension, stable. 6. Chronic back pain. 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 She had her walker next to the cabinet but somehow she fell in her kitchen and landed on her right hip. Her son was at the home when the incident happened. There were no other traumatic injuries and no loss of consciousness. Her vital signs on admission to the Emergency Room showed a temperature of 97.6, heart rate 71, blood pressure 189/101, respiratory rate 18, oxygen saturation 93%. Lab studies showed WBC of 6.8, hemoglobin 12.9, hematocrit 37.7. Sodium 123, potassium 3.1, chloride 90, glucose 121, serum osmolality 249.1. Her femur x-ray showed a subcapital right femoral neck fracture and CT of the right hip was suggested. The pelvis CT showed: (1) Angulated nondisplaced fracture of the subcapital right femoral neck with compression on the lateral aspect, soft tissue swelling, no femoral head dislocation, bilateral hip joint space narrowing with hypertropic superior lateral acetabular spurs (2) Minimal diatheses of the right S1 joint compared to the left nondisplaced fracture of the mid right anterior facet abutting the SI joint. (3) Uterosacral flex or retroverted, minimal fluid in the right adnexa. The right ovary is not well seen. Consider nonemergent pelvic ultrasound. 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 The Emergency Room physician called Dr. Sandhu who agreed to surgical intervention and I was called for hospital admission. HOSPITAL COURSE: The patient was admitted to the hospital and made n.p.o. at midnight. Dr. Sandhu's preoperative orders were initiated. She got 2 units of packed red blood cells that were type and crossed for surgery. She was allergic to cephalosporins so she had clindamycin on-call at the Emergency Room. Her home medications were restarted. After surgery, she received an IV PPI for ulcer prophylaxis as well as she took her labetalol prior to surgery. She was on both p.r.n. and scheduled nebulizer treatments. She recently moved to [place] from [place]. In [place], she had oxygen but she does not have oxygen here in [place]. The morphine was not controlling her pain so she was changed to Dilaudid. Good pulmonary hygiene was ordered. The patient was taken to operating room and had a right hemiarthroplasty. There were no intraoperative problems. Orthopedic management was per Dr. Sandhu as well as physical therapy. Once she finished her therapy at the hospital, she was accepted at [facility]. She continued her physical therapy here in the hospital. Her pain was fairly well controlled. She continued with vancomycin and clindamycin and monitored her urine cultures. Today, she will be discharged to [facility] facility in stable condition. LABORATORY: Her white count remained stable at 8.8 with a hemoglobin that dropped to 9.6, hematocrit 28.7. Her sodium improved to 129, potassium was supplemented and today it is 3.5, chloride 103, BUN 13, creatinine 0.80. Her magnesium was low at 1.5 and went up to 1.6 and she did receive supplementation. Her urinalysis showed positive urine nitrites with a small amount of urine leukocyte esterase, 4+ urine bacteria. Stool for occult blood was positive. Stool cultures were pending. Urine culture was pending. RADIOLOGY: Reports are per the history of present illness and the EMR. DISCHARGE PLAN: The patient will be discharged to [facility] in [place]. She is in stable condition. She is to resume her previous medications. She is to followup with Dr. Jarvis Mcgee on discharge. DISCHARGE MEDICATIONS: 1. Lisinopril. 2. Myrbetriq. 3. Rosuvastatin. 4. Labetalol. 5. Indapamide. 6. Duoneb. 7. Brovana. 8. Cipro. 9. Citalopram. 10. Cyclobenzaprine. 11. Xarelto. [facility][id number] [facility]
== END 2019-09-29 15:05 | DRG 470 ==
LOC: ER 10:47 → OBSVTOIN 14:08 → MS 14:08
PROVIDERS: ADMIT Nurse Practitioner Acute Care; ATTEND Nurse Practitioner Acute Care
PROC: 0SRR0J9 Replacement of Right Hip Joint, Femoral Surface with Synthetic Substitute, Cemented, Open Approach (ICD-10-PCS; principal; 2019-09-25)
DX: S72.011A Unspecified intracapsular fracture of right femur, initial encounter for closed fracture (principal); N39.0 Urinary tract infection, site not specified; E87.1 Hypo-osmolality and hyponatremia; J44.9 Chronic obstructive pulmonary disease, unspecified; I10 Essential (primary) hypertension; W01.0XXA Fall on same level from slipping, tripping and stumbling without subsequent striking against object, initial encounter; E83.42 Hypomagnesemia; Y93.E9 Activity, other interior property and clothing maintenance; Y92.000 Kitchen of unspecified non-institutional (private) residence as the place of occurrence of the external cause; Z88.0 Allergy status to penicillin; Z88.1 Allergy status to other antibiotic agents; Z88.8 Allergy status to other drugs, medicaments and biological substances; Z79.899 Other long term (current) drug therapy; G89.29 Other chronic pain; M54.9 Dorsalgia, unspecified; R19.5 Other fecal abnormalities; D64.9 Anemia, unspecified

== ENCOUNTER → 2019-10-27 | Outpatient (CLI) | payer OTHER | LOC: LAB.O 11:59 | PROVIDERS: ATTEND Nurse Practitioner | DX: D64.9 Anemia, unspecified (principal); G60.9 Hereditary and idiopathic neuropathy, unspecified ==

== ENCOUNTER → 2019-11-21 | Outpatient (CLI) | payer OTHER ==
--- NOTE | 2019-11-21 12:35 | RAD ---
EXAM DESCRIPTION: Chest,2 Views CLINICAL HISTORY: 84 years Female, RESPIRATORY CRACKLES COMPARISON: 09/25/2019. TECHNIQUE: PA and lateral radiographs of the chest were obtained. FINDINGS: Trachea is midline.The cardiomediastinal silhouette is normal in size. Mild pulmonary vascular congestion.The lungs are clear with no acute consolidation.No evidence of pleural effusions.No evidence of pneumothorax. IMPRESSION: Mild pulmonary vascular congestion. Otherwise no acute cardiopulmonary process. Electronically signed by: Dorothy Arevalo MD 11/21/2019 12:34 PM CDT
== END ==
LOC: RAD 12:06
PROVIDERS: ATTEND Family Medicine
DX: R09.89 Other specified symptoms and signs involving the circulatory and respiratory systems (principal)

== ENCOUNTER → 2020-05-13 | Outpatient (CLI) | payer OTHER | LOC: YCFC.O 16:00 | PROVIDERS: ATTEND Family Medicine | DX: Z11.59 Encounter for screening for other viral diseases (principal); R50.9 Fever, unspecified ==

== ENCOUNTER 2020-05-20 03:59 | Emergency (ER) | payer OTHER ==
[2020-05-20] MEDS ORDERED: AMIODARONE HCL 150 MG/3 ML VIAL IVPB ONE (04:25)
[2020-05-20] MEDS ORDERED: AMIODARONE IV (LOAD) 150 MG in DEXTROSE 5% 100ML 100 ML IVPB ONE (04:25)
[2020-05-20] MEDS ORDERED: SODIUM CHLORIDE 0.9% 100ML 100 ML IVPB ONE (04:27)
[2020-05-20] MEDS ORDERED: AMIODARONE IV (MAINT) 900 MG in DEXTROSE 5% (AVIVA) 500ML 500 ML IVPB SCH (04:30)
--- NOTE | 2020-05-20 04:35 | ED.PDOC ---
History of Present Illness - General Chief Complaint: General Stated Complaint: weakness, Nausea and vomiting Time Seen by Provider: 05/20/20 04:11 - History of Present Illness Initial Comments: 84 yo F PMH Multiple Comobidities and CAD poor historian presents to ED son at bedside c/o near syncope generalized weakness nausea vomiting that began this evening with associated diaphoresis. History through son, denies fever cough sob recent travel or contact with covid19 denies fever chills admits nausea vomiting non blood denies diarrhea chest pain sob admits diaphoresis no change in diet rest bowel or bladder no other c/o today. PPE worn-N95 surgical mask with attached face shield over N95 gloves and face shield over that Allergies/Adverse Reactions: Allergies Amantadine Allergy (Verified 09/25/19 11:06) Cephalosporins Allergy (Verified 09/25/19 11:06) Penicillins Allergy (Verified 09/25/19 11:06) Home Medications: Ambulatory Orders Fosinopril Sodium 20 mg PO DAILY 07/23/19 Indapamide 2.5 mg PO DAILY 07/23/19 Ipratropium-Albuterol [Ipratropium [place]/Albut] 1 eliel INH Q6HR 07/23/19 Labetalol HCl [Labetalol Hydrochloride] 100 mg PO BID 07/23/19 Mirabegron [Myrbetriq] 25 mg PO DAILY 07/23/19 Rosuvastatin Calcium 10 mg PO DAILY 07/23/19 Arformoterol Tartrate Nebs [Brovana Nebs] 15 mcg NEB RTBID #30 neb 07/27/19 Ciprofloxacin [Cipro] 250 mg PO BID tab 09/29/19 Citalopram Hydrobromide [Celexa] 10 mg PO DAILY tab 09/29/19 Cyclobenzaprine HCl [Flexeril] 10 mg PO Q8H PRN tab 09/29/19 Review of Systems - Review of Systems Constitutional: States: see HPI EENTM: States: see HPI Respiratory: States: see HPI Cardiology: States: see HPI Gastrointestinal/Abdominal: States: see HPI Genitourinary: States: see HPI Musculoskeletal: States: see HPI Skin: States: see HPI Neurological: States: see HPI Endocrine: States: see HPI All other Systems: Reviewed and Negative Past Medical History (General) - Patient Medical History Hx Seizures: No Hx Stroke: No Hx Dementia: No Hx Asthma: No Hx of COPD: Yes Hx Congestive Heart Failure: No Hx Pacemaker: No Hx Hypertension: Yes Hx Diabetes: No Hx Renal Disease: No Hx MRSA: No - Vaccination History Hx Influenza Vaccination: No Hx Pneumococcal Vaccination: Yes - Social History Hx Tobacco Use: No Hx Alcohol Use: No Hx Substance Use: No Hx Physical Abuse: No Hx Emotional Abuse: No Family Medical History - Family History Mother Family History: No Known Living Status: Hx Family;Other: Mother - - DM, HTN. Father - - NC, HTN Physical Exam - Physical Exam General Appearance: No apparent distress, Ill Appearing Eye Exam: bilateral normal Ears, Nose, Throat: normal ENT inspection Neck: full range of motion, other - reports tenderness to neck Respiratory: no respiratory distress Cardiovascular/Chest: irregularly irregular Gastrointestinal/Abdominal: non tender, soft Rectal Exam: deferred Back Exam: normal inspection Extremity: normal range of motion, non-tender Neurologic: no motor/sensory deficits Skin Exam: normal color Progress - Progress Progress: 05/20/20 04:36 A/P-AFib with RVR, Hypotension-iv bolus cbc cmp troponin bnp covid swab toilet products molder pulse ox amoidarone bolus and drip stabilize and transfer Dr. Fair accepts [facility] 05/20/20 04:[address] started second IV line and called for flight transfer EKG-non specific TW changes irregularly irregular rhythm at 158 bpm with rapid ventricular response Listened for bruit at the neck no obvious bruit appreciated attempted vagal maneuver of pressing against abdomen with valsalva maneuver without success Departure - Departure Clinical Impression: Atrial fibrillation with RVR Hypotension Qualifiers: Hypotension type: unspecified hypotension type Qualified Code(s): I95.9 - Hypotension, unspecified Time of Disposition: 04:46 Disposition: Transfer to Hospital Condition: Poor Departure Forms: ED Discharge - Pt. Copy, Patient Portal Self Enrollment Referrals: Hilary Mcgee MD [Primary Care Provider] - 1-2 Days Home Medications: Ambulatory Orders Fosinopril Sodium 20 mg PO DAILY 07/23/19 Indapamide 2.5 mg PO DAILY 07/23/19 Ipratropium-Albuterol [Ipratropium [place]/Albut] 1 eliel INH Q6HR 07/23/19 Labetalol HCl [Labetalol Hydrochloride] 100 mg PO BID 07/23/19 Mirabegron [Myrbetriq] 25 mg PO DAILY 07/23/19 Rosuvastatin Calcium 10 mg PO DAILY 07/23/19 Arformoterol Tartrate Nebs [Brovana Nebs] 15 mcg NEB RTBID #30 neb 07/27/19 Ciprofloxacin [Cipro] 250 mg PO BID tab 09/29/19 Citalopram Hydrobromide [Celexa] 10 mg PO DAILY tab 09/29/19 Cyclobenzaprine HCl [Flexeril] 10 mg PO Q8H PRN tab 09/29/19 Transfer to Outside Facility - Transfer Information Decision to Transfer Date: 05/20/20 Decision to Transfer Time: 04:46 Reason for Transfer: ICU Accepting Provider:: Dr. Fair Accepting Facility: [facility]
[2020-05-20] MEDS ORDERED: SODIUM CHLORIDE 0.9% 250ML 250 ML ONE (04:57)
--- NOTE | 2020-05-20 04:58 | RAD ---
EXAM DESCRIPTION: Chest,1 View CLINICAL HISTORY: afib with RVR COMPARISON: 11/21/2019 FINDINGS: Single frontal radiograph view of the chest. Cardiomediastinal silhouette: Cardiomegaly. Pulmonary vascular congestion. Calcified mediastinal lymph nodes. Leads overlie the chest. Lungs: Blunting of the costophrenic angles may represent small bilateral pleural effusions. No pneumothorax. Bones: Degenerative change of the shoulders and spine. Upper abdomen: No abnormality identified. IMPRESSION: 1. Cardiomegaly with pulmonary vascular congestion. 2. Possible small bilateral pleural effusions. Electronically signed by: Jerman Romano 05/20/2020 4:57 AM CHANNEL MACHINE OPERATOR
[2020-05-20] MEDS ORDERED: METOPROLOL TARTRATE INJ 5 MG/5 ML VIAL IV ONE ×2 (05:12→05:36)
[2020-05-20 05:28] VITALS: O2SAT 99
[2020-05-20 05:33] VITALS: BP 97/57; TEMP 97.6
[2020-05-20] MEDS ORDERED: SODIUM CHLORIDE 0.9% 1000ML 1,000 ML IVS ONE (05:36)
[2020-05-20] MEDS ORDERED: SODIUM CHLORIDE 0.9% 250ML 250 ML IVS PRN (05:37)
[2020-05-20] MEDS ORDERED: SUCCINYLCHOLINE CHLORIDE 200 MG/10 ML VIAL ONE (14:33)
== END 2020-05-20 05:50 | disposition short-term general hospital (02) ==
LOC: ER 03:59
DX: I48.91 Unspecified atrial fibrillation (principal); R00.0 Tachycardia, unspecified; I95.9 Hypotension, unspecified; R55 Syncope and collapse; R11.2 Nausea with vomiting, unspecified; I10 Essential (primary) hypertension; J44.9 Chronic obstructive pulmonary disease, unspecified; Z20.828 Contact with and (suspected) exposure to other viral communicable diseases; Z79.899 Other long term (current) drug therapy; Z88.8 Allergy status to other drugs, medicaments and biological substances; Z88.1 Allergy status to other antibiotic agents; Z88.0 Allergy status to penicillin
CPT/HCPCS: 71045; 80053; 83605; 83880; 84484; 85025; 85610; 85730; 87635; 93005; J0282; J0330; J7050; J7060

== ENCOUNTER → 2020-05-31 | Outpatient (CLI) | payer OTHER ==
--- NOTE | 2020-05-31 15:48 | RAD ---
EXAM DESCRIPTION: Chest,2 Views CLINICAL HISTORY: PLEURAL EFFUSION COMPARISON: May 20, 2020 FINDINGS: Two-view chest x-ray shows cardiomediastinal silhouette and pulmonary vasculature to be within normal limits. The lungs are normally aerated and clear. Multiple calcified pulmonary nodules bilaterally with calcified lymph nodes in the hilar regions compatible with old granulomatous disease. Mild blunting of left costophrenic angle is seen.. Severe secondary degenerative changes of the right shoulder are seen. Scoliosis of the spine with multilevel spondylitic changes. IMPRESSION: Small left pleural effusion. Stable old granulomatous disease. Electronically signed by: Robert Coleman MD 05/31/2020 3:46 PM [facility]
== END ==
LOC: YCFC.O 14:55
PROVIDERS: ATTEND Nurse Practitioner
DX: J90 Pleural effusion, not elsewhere classified (principal); J84.10 Pulmonary fibrosis, unspecified; E78.1 Pure hyperglyceridemia; D64.89 Other specified anemias

== ENCOUNTER 2020-06-11 05:38 | Emergency (ER) | payer OTHER ==
[2020-06-11] MEDS ORDERED: PROCHLORPERAZINE INJ 10 MG/2 ML VIAL IV ONE (06:30)
[2020-06-11] MEDS ORDERED: hydrALAZINE HCl 20 MG/ML VIAL IV ONE (06:31)
--- NOTE | 2020-06-11 06:39 | ED.PDOC ---
History of Present Illness - General Source: patient, RN notes reviewed, Vital Signs reviewed, family - son Exam Limitations: no limitations - History of Present Illness Initial Comments: Patient is a 84-year-old white female who presents with complaints of headache and elevated blood pressure. Patient has a history of A. fib and is on blood thinners for it. Patient was here recently for same and was transferred out for further evaluation of her A. fib. Patient awoke from sleep this morning with a headache and noticed her blood pressure has been high since last night. The headache is throbbing in nature. It is constant. It is severe. It is nonradiating. Patient denies photophobia. The headache is worse when she bends over. Is not improved by anything. The headache is similar to her previous headaches. Timing/Duration: 4-6 hours Severity: moderate Improving Factors: nothing Worsening Factors: movement Associated Symptoms: chest pain <Rolando Rodríguez - Last Filed: 06/11/20 06:51> <Carmela Bryan - Last Filed: 06/11/20 09:48> - General Chief Complaint: Blood Pressure Problem Stated Complaint: high bp, and headache Time Seen by Provider: 06/11/20 06:20 - History of Present Illness Allergies/Adverse Reactions: Allergies Amantadine Allergy (Verified 09/25/19 11:06) Cephalosporins Allergy (Verified 09/25/19 11:06) Penicillins Allergy (Verified 09/25/19 11:06) Home Medications: Ambulatory Orders Ipratropium-Albuterol [Ipratropium [place]/Albut] 1 eliel INH Q6HR 07/23/19 Mirabegron [Myrbetriq] 25 mg PO DAILY 07/23/19 Rosuvastatin Calcium 10 mg PO DAILY 07/23/19 Amiodarone HCl [Pacerone] 100 mg PO BID 06/11/20 Apixaban [Eliquis] 5 mg PO BID 06/11/20 Ciprofloxacin [Cipro] 500 mg PO BID #10 tab 06/11/20 Metoprolol Tartrate 50 mg PO BID 06/11/20 Review of Systems - Review of Systems Constitutional: States: no symptoms reported, see HPI. Denies: chills, fever, malaise, weakness EENTM: States: no symptoms reported. Denies: eye pain, blurred vision, double vision Respiratory: States: no symptoms reported. Denies: cough, short of breath, stridor, wheezing Cardiology: States: see HPI, chest pain. Denies: palpitations, syncope Gastrointestinal/Abdominal: States: no symptoms reported. Denies: abdominal pain, diarrhea, nausea, vomiting Genitourinary: States: no symptoms reported. Denies: dysuria, frequency Musculoskeletal: States: no symptoms reported. Denies: joint pain, joint swelling Skin: States: no symptoms reported. Denies: change in color, rash Neurological: States: see HPI, headache. Denies: tingling, tremors, weakness Endocrine: States: no symptoms reported. Denies: increased hunger, increased thirst, increased urine Hematologic/Lymphatic: States: easy bleeding, easy bruising. Denies: blood clots All other Systems: Reviewed and Negative, No Change from Baseline <Rolando Rodríguez - Last Filed: 06/11/20 06:51> Past Medical History (General) - Patient Medical History Hx Seizures: No Hx Stroke: No Hx Dementia: No Hx Asthma: No Hx of COPD: Yes Hx Cardiac Disorders: Yes - a fib Hx Congestive Heart Failure: No Hx Pacemaker: No Hx Hypertension: Yes Hx Thyroid Disease: No Hx Diabetes: No Hx Gastroesophageal Reflux: No Hx Renal Disease: No Hx Cancer: No Hx of HIV: No Hx Hepatitis C: No Hx MRSA: No Surgical History: other - Vaccination History Hx Tetanus, Diphtheria Vaccination: - unkn Hx Influenza Vaccination: No Hx Pneumococcal Vaccination: Yes Immunizations Up to Date: No - Social History Hx Tobacco Use: No Hx Chewing Tobacco Use: No Hx Alcohol Use: No Hx Substance Use: No Hx Substance Use Treatment: No Hx Depression: No Feels Threatened In Home Enviroment: No Feels Threatened In a Relationship: No Hx Physical Abuse: No Hx Emotional Abuse: No Hx Suspected Abuse: No - Activities of Daily Living Hospice Agency (if applicable):: None - Female History Patient is a Female of Child Bearing Age (10 -59 yrs old): No - Triage Comment ED Triage Comment: pt unable to recall health medical facts <Rolando Rodríguez - Last Filed: 06/11/20 06:51> Family Medical History - Family History Mother Family History: No Known Living Status: Hx Family;Other: Mother - - [place], HTN. Father - - [place], HTN <Rolando Rodríguez - Last Filed: 06/11/20 06:51> Physical Exam - Physical Exam General Appearance: Alert, Anxious, Frail, Well Developed, Well Groomed, Well Hydrated, Well Nourished Eye Exam: bilateral normal Ears, Nose, Throat: hearing grossly normal, normal ENT inspection, normal pharynx Neck: non-tender, full range of motion, supple Respiratory: chest non-tender, lungs clear, normal breath sounds, no respiratory distress, no accessory muscle use Cardiovascular/Chest: normal peripheral pulses, no edema, no gallop, no JVD, no murmur, irregularly irregular Peripheral Pulses: radial,right: 2+, radial,left: 2+ Gastrointestinal/Abdominal: normal bowel sounds, non tender, soft Back Exam: normal inspection, no CVA tenderness, no vertebral tenderness Extremity: normal range of motion, non-tender, normal inspection, no pedal edema, no calf tenderness Neurologic: operations examiner II-XII nml as tested, no motor/sensory deficits, alert, normal mood/affect, oriented x 3 Skin Exam: normal color, warm/dry Lymphatic: no adenopathy <Rolando Rodríguez - Last Filed: 06/11/20 06:51> Progress - Progress Progress: Differential diagnosis: Acute [place], accelerated hypertension, malignant hypertension, medication noncompliance among others. 06/11/20 07:05 Patient is resting quietly. Will manage her blood pressure and await labs. Patient handed off to Dr. Ralph Bryan at shift change at 0700 hrs. on June 11, 2020. Dr. Bryan and I have discussed the care to date and he will manage the patient from here on out. Rolando Rodríguez M.D. #[id number] - Results/Orders Results/Orders: EKG performed 11 June 2020 at 0557 hrs.: Sinus bradycardia with an occasional PVC at 58 bpm, nonspecific T changes, prolonged QT, no ST or T wave elevation or depression concerning for acute ischemia. Abnormal EKG. No comparison EKG available at this time. PROCEDURE:XR CHEST 1 VIEW HISTORY:hypertension COMPARISON: May 31, 2020 FINDINGS: The heart appears unremarkable. There is been slight increase in size of the patient's left-sided pleural effusion with overlying atelectatic changes. Small trace right-sided effusion is seen to be present. Old granulomatous disease seen in both lungs. There is no alveolar consolidation or pneumothorax. Degenerative changes are seen in both shoulders. There are no acute bony antibodies. IMPRESSION: Slight increase in size in the patient's bilateral effusions. Electronically signed by: Servando Forrester MD 06/11/2020 6:50 AM EHS TEACHER <Rolando Rodríguez - Last Filed: 06/11/20 06:51> - Progress Progress: 06/11/20 09:46 The patient presents emergency room primarily secondary to a headache this morning. Laboratory work is reassuring with the exception that she does have a urinary tract infection and will be placed on ciprofloxacin for the next 5 days for that. A urine culture will be performed in case she fails to respond. She does need to have a repeat urinalysis in about a week to confirm clearance. The headache itself seems to be most likely tension headache. Head CT was within normal limits and the patient tested negative for coronavirus here today. ER warnings are given for any significant worsening. Headache has improved with Motrin and Tylenol which can be continued at home if needed. carmela bryan [id number] - Results/Orders Results/Orders: Head CT showed no evidence of any acute intracranial pathology. Rapid coronavirus test is negative. 06/11/20 06:15 URINE CULTURE W/COLONY COUNT Stat Laboratory Results - last 24 hr 06/11/20 06/11/20 06/11/20 06:15 06:45 06:45 WBC 9.9 RBC 3.47 L Hgb 11.0 L Hct 31.4 L MCV 90.5 MCH 31.5 H MCHC 34.8 RDW 13.3 Plt Count 334 MPV 8.2 Absolute Neuts (auto) 6.90 H Absolute Lymphs (auto) 1.50 Absolute Monos (auto) 1.10 H Absolute Eos (auto) 0.20 Absolute Basos (auto) 0.10 Neutrophils % 70.2 Lymphocytes % 15.3 L Monocytes % 11.6 H Eosinophils % 1.9 Basophils % 1.0 Sodium 132 L Potassium 3.7 Chloride 98 L Carbon Dioxide 22 Anion Gap 15.7 BUN 12 Creatinine 0.80 BUN/Creatinine Ratio 15.0 Random Glucose 118 H Serum Osmolality 265.4 L Calcium 8.7 Troponin I Urine Color Yellow Urine Appearance Cloudy Urine pH 7.0 Ur Specific [place] 1.010 Urine Protein Negative Urine Glucose (UA) Negative Urine Ketones Negative Urine Blood Small H Urine Nitrite Negative Urine Bilirubin Negative Urine Urobilinogen 0.2 Ur Leukocyte Esterase Moderate H Urine RBC 0-1 Urine WBC Tntc H Ur Epithelial Cells 10-20 Urine Bacteria 3+ H 06/11/20 06:45 WBC RBC Hgb Hct MCV MCH MCHC RDW Plt Count MPV Absolute Neuts (auto) Absolute Lymphs (auto) Absolute Monos (auto) Absolute Eos (auto) Absolute Basos (auto) Neutrophils % Lymphocytes % Monocytes % Eosinophils % Basophils % Sodium Potassium Chloride Carbon Dioxide Anion Gap BUN Creatinine BUN/Creatinine Ratio Random Glucose Serum Osmolality Calcium Troponin I 0.02 Urine Color Urine Appearance Urine pH Ur Specific [place] Urine Protein Urine Glucose (UA) Urine Ketones Urine Blood Urine Nitrite Urine Bilirubin Urine Urobilinogen Ur Leukocyte Esterase Urine RBC Urine WBC Ur Epithelial Cells Urine Bacteria <Carmela Bryan - Last Filed: 06/11/20 09:48> Departure - Departure Diet: resume usual diet Activity: increase activity as tolerated <Rolando Rodríguez - Last Filed: 06/11/20 06:51> - Departure Diet: low salt diet Activity: increase activity as tolerated <Carmela Bryan - Last Filed: 06/11/20 09:48> - Departure Clinical Impression: Accelerated hypertension Atrial fibrillation Qualifiers: Atrial fibrillation type: paroxysmal Qualified Code(s): I48.0 - Paroxysmal atrial fibrillation Headache Qualifiers: Headache type: unspecified Headache chronicity pattern: acute headache Intractability: not intractable Qualified Code(s): R51.9 - Headache, unspecified Urinary tract infection Qualifiers: Urinary tract infection type: acute cystitis Hematuria presence: without hematuria Qualified Code(s): N30.00 - Acute cystitis without hematuria Disposition: Discharge to Home or Self Care Condition: Fair Departure Forms: ED Discharge - Pt. Copy, Patient Portal Self Enrollment Instructions: DI for High Blood Pressure Referrals: Hilary Mcgee MD [Primary Care Provider] - 1-2 Weeks Prescriptions: Ciprofloxacin [Cipro] 500 mg PO BID #10 tab Home Medications: Ambulatory Orders Ipratropium-Albuterol [Ipratropium [place]/Albut] 1 eliel INH Q6HR 07/23/19 Mirabegron [Myrbetriq] 25 mg PO DAILY 07/23/19 Rosuvastatin Calcium 10 mg PO DAILY 07/23/19 Amiodarone HCl [Pacerone] 100 mg PO BID 06/11/20 Apixaban [Eliquis] 5 mg PO BID 06/11/20 Ciprofloxacin [Cipro] 500 mg PO BID #10 tab 06/11/20 Metoprolol Tartrate 50 mg PO BID 06/11/20 Additional Instructions: The patient presents emergency room primarily secondary to a headache this morning. Laboratory work is reassuring with the exception that she does have a urinary tract infection and will be placed on ciprofloxacin for the next 5 days for that. A urine culture will be performed in case she fails to respond. She does need to have a repeat urinalysis in about a week to confirm clearance. The headache itself seems to be most likely tension headache. Head CT was within normal limits and the patient tested negative for coronavirus here today. ER warnings are given for any significant worsening. Headache has improved with Motrin and Tylenol which can be continued at home if needed.
--- NOTE | 2020-06-11 06:51 | RAD ---
PROCEDURE:XR CHEST 1 VIEW HISTORY:hypertension COMPARISON: May 31, 2020 FINDINGS: The heart appears unremarkable. There is been slight increase in size of the patient's left-sided pleural effusion with overlying atelectatic changes. Small trace right-sided effusion is seen to be present. Old granulomatous disease seen in both lungs. There is no alveolar consolidation or pneumothorax. Degenerative changes are seen in both shoulders. There are no acute bony antibodies. IMPRESSION: Slight increase in size in the patient's bilateral effusions. Electronically signed by: Servando Forrester MD 06/11/2020 6:50 AM DOCTOR ASSISTANT
[2020-06-11] MEDS ORDERED: ACETAMINOPHEN W/COD #3 TAB 1 EA TAB PO ONE (08:11)
[2020-06-11] MEDS ORDERED: IBUPROFEN 200 MG TAB PO ONE (08:11)
--- NOTE | 2020-06-11 08:48 | CT ---
EXAM DESCRIPTION: Head CLINICAL HISTORY: headache on eliquis COMPARISON: 07/15/2019 TECHNIQUE: Multiple axial images of the head without contrast. Multiplanar reformatted images. This exam was performed according to our departmental dose-optimization program, which includes automated exposure control, adjustment of the mA and/or kV according to patient size and/or use of iterative reconstruction technique. FINDINGS: There is no CT evidence of intracranial hemorrhage, mass effect, or large territory infarction. Mild generalized volume loss. Moderate patchy supratentorial white matter hypodensities. There are no abnormal extra-axial fluid collections. Calcification along the interhemispheric falx and tentorium again demonstrated. Calcific plaque in the visualized arteries. There is no acute calvarial defect. The visualized paranasal sinuses and the mastoids are clear. IMPRESSION: 1. No CT evidence of an acute intracranial abnormality. If there is concern for an acute or subacute infarct, consider follow-up MRI. 2. Senescent changes. Electronically signed by: Kojo Frances MD 06/11/2020 8:[address] [facility] [id number]
[2020-06-11 10:15] VITALS: BP 160/88; TEMP 98.2; O2SAT 98
== END 2020-06-11 09:55 | disposition home or self-care (01) ==
LOC: ER 05:38
DX: I10 Essential (primary) hypertension (principal); I48.0 Paroxysmal atrial fibrillation; R51.9 Headache, unspecified; N30.00 Acute cystitis without hematuria; R00.1 Bradycardia, unspecified; I49.3 Ventricular premature depolarization; J44.9 Chronic obstructive pulmonary disease, unspecified; Z20.828 Contact with and (suspected) exposure to other viral communicable diseases; Z79.01 Long term (current) use of anticoagulants; Z79.899 Other long term (current) drug therapy; Z88.1 Allergy status to other antibiotic agents; Z88.8 Allergy status to other drugs, medicaments and biological substances
CPT/HCPCS: 36415; 70450; 71045; 80048; 81001; 84484; 85025; 87086; 87088; 87186; 87635; 93005; J0360

== ENCOUNTER → 2020-06-22 | Outpatient (CLI) | payer MEDICARE, OTHER | LOC: YCHH 09:53 | PROVIDERS: ATTEND Family Medicine | DX: N39.0 Urinary tract infection, site not specified (principal) ==

== ENCOUNTER → 2020-07-09 | Outpatient (CLI) | payer OTHER ==
--- NOTE | 2020-07-12 08:07 | RAD ---
EXAM: Chest,2 Views CLINICAL HISTORY: PLEURAL EFFUSION COMPARISON STUDY: Chest x-ray from June 11, 2020 TECHNICAL: PA and lateral chest x-ray. FINDINGS: Very small bilateral pleural effusions persist. These fluid collections have decreased since the previous examination. There is better overall aeration of the lung bases with less opacity in the left lower lobe. No pulmonary edema. Multiple calcified granulomata are stable and benign. The heart prominent but unchanged. Atherosclerotic vascular calcifications are present. A mild compression fracture of T11 is noted and unchanged. IMPRESSION: Better aeration of the lungs and decreased bilateral pleural effusions. Electronically signed by: Ben Griffin MD 07/12/2020 8:05 AM [facility]
== END ==
LOC: RAD 13:24
PROVIDERS: ATTEND Nurse Practitioner Family
DX: J90 Pleural effusion, not elsewhere classified (principal)

== ENCOUNTER → 2020-08-02 | Outpatient (CLI) | payer OTHER | LOC: YCFC.O 11:33 | PROVIDERS: ATTEND Nurse Practitioner | DX: D47.3 Essential (hemorrhagic) thrombocythemia (principal) ==

== ENCOUNTER → 2020-08-16 | Outpatient (CLI) | payer OTHER | LOC: YCFC.O 15:35 | PROVIDERS: ATTEND Family Medicine | DX: D64.9 Anemia, unspecified (principal); E87.1 Hypo-osmolality and hyponatremia; R42 Dizziness and giddiness ==

== ENCOUNTER → 2020-08-25 | Outpatient (CLI) | payer OTHER ==
--- NOTE | 2020-08-25 16:51 | CT ---
EXAM DESCRIPTION: Chest w/o Contrast CLINICAL HISTORY: 84 years Female, CHRONIC OBSTRUCTIVE LUNG DISEASE TECHNIQUE: This exam was performed according to our departmental dose-optimization program, which includes automated exposure control, adjustment of the mA and/or kV according to patient size and/or use of iterative reconstruction technique. COMPARISON: None at time of initial interpretation. FINDINGS: The thyroid gland is unremarkable. No axillary adenopathy. Atherosclerotic plaque in the thoracic aorta. Trace pericardial fluid. No evidence of acute process in the visualized upper abdomen. Small hiatal hernia. Calcified mediastinal and hilar lymph nodes. Scattered benign calcified granulomas. No pneumothorax. No pleural effusion. Scattered areas of scarring and volume loss. No focal consolidation. No suspicious pulmonary nodule. Centrilobular emphysema with a preferential upper lobe involvement. No acute or suspicious osseous abnormality. Scattered degenerative changes present. Chronic T11 superior endplate compression deformity. IMPRESSION: Emphysema with sequela of prior granulomatous disease. No evidence of acute process in the chest. Electronically signed by: Lei Cotter MD 08/25/2020 4:49 PM PROCESS IMPROVEMENT ENGINEER
== END ==
LOC: CT 10:53
PROVIDERS: ATTEND Internal Medicine
DX: J44.9 Chronic obstructive pulmonary disease, unspecified (principal); J90 Pleural effusion, not elsewhere classified; R05 Cough